=== PATIENT | male | born 1950 | race Caucasian/White ===

== ENCOUNTER 2020-12-20 17:27 | Inpatient (IN) | payer OTHER ==
[2020-12-20 17:48] VITALS: BMI 31.0
[2020-12-20] MEDS ORDERED: ASPIRIN 81 MG CHEWABLE TABLETS PO ONE (18:17)
[2020-12-20 19:04] LABS: HEMOGLOBIN 13.6 GM/dL (11.7-16.9); MCH 31.9 pg (25.7-33.7); MCHC 33.1 g/dl (32.0-35.9); MEAN CELL VOLUME 96.3 fl (80-96); MEAN PLT VOLUME 8.3 fl (7.5-11.1); PLATELET COUNT 175 10^3/uL (134-434); RBC 4.26 M/mm3 (4.00-5.60); WHITE BLOOD COUNT 14.3 K/mm3 (4.0-10.0)
[2020-12-20 19:13] LABS: INR 0.94 (0.83-1.09); PROTHROMBIN TIME (PATIENT) 11.6 SEC (9.7-13.0)
[2020-12-20 19:15] LABS: ACTIVATED PTT 27.2 SECONDS (25.2-36.5)
[2020-12-20 19:19] LABS: CHLORIDE 106 mmol/L (98-107); SODIUM 130 mmol/L (136-145)
[2020-12-20 19:21] LABS: BLOOD UREA NITROGEN 42.6 mg/dL (7-18); CALCIUM 7.6 mg/dL (8.5-10.1); CO2 27 mmol/L (21-32); GLUCOSE,RANDOM 118 mg/dL (74-106); LIPASE < 10 U/L (73-393); MAGNESIUM 2.3 mg/dL (1.8-2.4)
[2020-12-20 19:25] LABS: CREATININE 1.9 mg/dL (0.55-1.3)
[2020-12-20 19:26] LABS: BILIRUBIN,TOTAL 0.2 mg/dL (0.2-1); TOT PROT 6.8 g/dl (6.4-8.2)
[2020-12-20 19:27] LABS: ALK PHOS 64 U/L (45-117)
[2020-12-20 19:30] LABS: N-TERMINAL BNP 30.9 pg/ml (5-125)
[2020-12-20 20:36] LABS: ANION GAP -3 MMOL/L (8-16); SGOT/AST 63 U/L (15-37)
[2020-12-20 21:24] LABS: CHLORIDE 116 mmol/L (98-107); SODIUM 147 mmol/L (136-145)
[2020-12-20 21:26] LABS: ANION GAP 4 MMOL/L (8-16); BLOOD UREA NITROGEN 36.3 mg/dL (7-18); CO2 27 mmol/L (21-32); GLUCOSE,RANDOM 91 mg/dL (74-106)
[2020-12-20 21:29] LABS: CREATININE 1.6 mg/dL (0.55-1.3)
[2020-12-20 22:12] LABS: CALCIUM 6.7 mg/dL (8.5-10.1)
[2020-12-20 23:29] LABS: URINE APPEARANCE CLEAR; URINE BILIRUBIN NEGATIVE (NEGATIVE); URINE COLOR YELLOW; URINE GLUCOSE (UA) NEGATIVE (NEGATIVE); URINE KETONE NEGATIVE (NEGATIVE); URINE LEUK ESTERASE NEGATIVE (NEGATIVE); URINE NITRITE NEGATIVE (NEGATIVE); URINE PROTEIN NEGATIVE (NEGATIVE); URINE UROBILINOGEN 0.2 mg/dL (0.2-1.0)
[2020-12-21 08:04] LABS: HEMATOCRIT 39.7 % (35.4-49); HEMOGLOBIN 13.1 GM/dL (11.7-16.9); MCH 31.4 pg (25.7-33.7); MCHC 32.9 g/dl (32.0-35.9); MEAN CELL VOLUME 95.4 fl (80-96); MEAN PLT VOLUME 8.1 fl (7.5-11.1); PLATELET COUNT 167 10^3/uL (134-434); RBC 4.16 M/mm3 (4.00-5.60); RDW 17.1 % (11.9-15.9); WHITE BLOOD COUNT 13.3 K/mm3 (4.0-10.0)
[2020-12-21 08:10] LABS: CHLORIDE 107 mmol/L (98-107); SODIUM 144 mmol/L (136-145)
[2020-12-21 08:19] LABS: ALBUMIN 3.2 g/dl (3.4-5.0); ANION GAP 5 MMOL/L (8-16); BLOOD UREA NITROGEN 35.8 mg/dL (7-18); CO2 31 mmol/L (21-32); GLUCOSE,RANDOM 95 mg/dL (74-106); MAGNESIUM 2.1 mg/dL (1.8-2.4)
[2020-12-21 08:22] LABS: BILIRUBIN,TOTAL 0.3 mg/dL (0.2-1); CHOLESTEROL 149 mg/dL (50-200); CREATININE 1.6 mg/dL (0.55-1.3); HDL CHOLESTEROL 28 mg/dL (40-60); PHOSPHOROUS 3.2 mg/dL (2.5-4.9); SGOT/AST 10 U/L (15-37); SGPT/ALT 17 U/L (13-61); TRIGLYCERIDES 353 mg/dL (0-150)
[2020-12-21 08:23] LABS: ALK PHOS 67 U/L (45-117); LDL CHOLESTEROL (ONLY SJRH) 71 mg/dL (5-100); TOT PROT 6.1 g/dl (6.4-8.2)
[2020-12-21 08:29] LABS: CALCIUM 8.6 mg/dL (8.5-10.1)
[2020-12-21 08:55] LABS: ANISOCYTOSIS 0; HELMET CELLS 0; HOWELL-JOLLY BODIES 0; MACROCYTOSIS 0; OVALOCYTE 0; PLATELET ESTIMATE NORMAL; ROULEAU 0; SICKELED CELLS 0; TARGET CELLS 0; TEAR DROP CELLS 0; TOXIC GRANULATION 0
[2020-12-21] MEDS ORDERED: SODIUM CHLORIDE 1,000 ML IV SCH (09:00)
[2020-12-21] MEDS: ENOXAPARIN NA (PORCINE) 40 MG/0.4 ML DISP.SYRIN SQ SCH (09:39)
[2020-12-21] MEDS: ASPIRIN COATED 81 MG TABLET.EC PO SCH (09:43)
[2020-12-21] MEDS: SODIUM CHLORIDE 0.45% 1,000 ML IV SCH (15:48)
[2020-12-21] MEDS ORDERED: ACETAMINOPHEN 325 MG TABLET (FP) PO PRN (22:18)
[2020-12-22 09:15] LABS: HEMATOCRIT 39.2 % (35.4-49); HEMOGLOBIN 13.1 GM/dL (11.7-16.9); MCH 31.6 pg (25.7-33.7); MCHC 33.3 g/dl (32.0-35.9); MEAN CELL VOLUME 94.8 fl (80-96); MEAN PLT VOLUME 8.7 fl (7.5-11.1); PLATELET COUNT 179 10^3/uL (134-434); RBC 4.14 M/mm3 (4.00-5.60); WHITE BLOOD COUNT 13.7 K/mm3 (4.0-10.0)
[2020-12-22 10:00] LABS: ALBUMIN 3.1 g/dl (3.4-5.0); BLOOD UREA NITROGEN 24.4 mg/dL (7-18); CALCIUM 8.7 mg/dL (8.5-10.1)
[2020-12-22 10:03] LABS: BILIRUBIN,TOTAL 0.3 mg/dL (0.2-1); CREATININE 1.3 mg/dL (0.55-1.3)
[2020-12-22 10:04] LABS: TOT PROT 5.8 g/dl (6.4-8.2)
[2020-12-22] MEDS: ENOXAPARIN NA (PORCINE) 40 MG/0.4 ML DISP.SYRIN SQ SCH (10:30)
[2020-12-22] MEDS: ASPIRIN COATED 81 MG TABLET.EC PO SCH (10:30)
[2020-12-22] MEDS: SODIUM CHLORIDE 0.45% 1,000 ML IV SCH (18:42)
[2020-12-23] MEDS: SODIUM CHLORIDE 0.45% 1,000 ML IV SCH ×2 (05:20→21:30)
[2020-12-23 08:17] LABS: HEMATOCRIT 40.3 % (35.4-49); HEMOGLOBIN 13.4 GM/dL (11.7-16.9); MCH 31.4 pg (25.7-33.7); MCHC 33.3 g/dl (32.0-35.9); MEAN CELL VOLUME 94.5 fl (80-96); MEAN PLT VOLUME 8.8 fl (7.5-11.1); PLATELET COUNT 190 10^3/uL (134-434); RBC 4.27 M/mm3 (4.00-5.60); RDW 16.5 % (11.9-15.9); WHITE BLOOD COUNT 16.2 K/mm3 (4.0-10.0)
[2020-12-23 08:20] LABS: CHLORIDE 105 mmol/L (98-107); SODIUM 138 mmol/L (136-145)
[2020-12-23 08:27] LABS: ALBUMIN 3.3 g/dl (3.4-5.0); ANION GAP 5 MMOL/L (8-16); BLOOD UREA NITROGEN 21.5 mg/dL (7-18); CALCIUM 8.5 mg/dL (8.5-10.1); CO2 29 mmol/L (21-32); GLUCOSE,RANDOM 97 mg/dL (74-106)
[2020-12-23 08:28] LABS: SGPT/ALT 26 U/L (13-61)
[2020-12-23 08:29] LABS: CREATININE 1.2 mg/dL (0.55-1.3)
[2020-12-23 08:31] LABS: ALK PHOS 79 U/L (45-117); BILIRUBIN,TOTAL 0.4 mg/dL (0.2-1); SGOT/AST < 3 U/L (15-37); TOT PROT 7.2 g/dl (6.4-8.2)
[2020-12-23] MEDS: ASPIRIN COATED 81 MG TABLET.EC PO SCH (09:02)
[2020-12-23] MEDS: ENOXAPARIN NA (PORCINE) 40 MG/0.4 ML DISP.SYRIN SQ SCH (09:02)
[2020-12-23 09:43] LABS: ANISOCYTOSIS 0; HELMET CELLS 0; HOWELL-JOLLY BODIES 0; MACROCYTOSIS 0; OVALOCYTE 0; PLATELET ESTIMATE NORMAL; ROULEAU 0; SICKELED CELLS 0; TARGET CELLS 0; TEAR DROP CELLS 0; TOXIC GRANULATION 0
[2020-12-23] MEDS ORDERED: PT OWN MED DRAWER 7, Y5N ONE (20:46)
[2020-12-23] MEDS: LORazepam 1 MG TABLET PO SCH (21:04)
[2020-12-23] MEDS: DIVALPROEX NA *ER* EXTEND REL 250 MG TABLET.SA PO SCH (21:04)
[2020-12-23] MEDS: BENZTROPINE MESYLATE 0.5 MG TABLET (FP) PO SCH (21:04)
[2020-12-23] MEDS: DOCUSATE SODIUM 100 MG CAPSULE (FP) PO SCH (21:05)
[2020-12-24 07:49] LABS: BASO % 0.3 % (0-2.0); EOS % 0.8 % (0-4.5); HEMATOCRIT 39.8 % (35.4-49); HEMOGLOBIN 13.4 GM/dL (11.7-16.9); LYMPH % 72.6 % (8-40); MCH 31.6 pg (25.7-33.7); MCHC 33.6 g/dl (32.0-35.9); MEAN CELL VOLUME 94.2 fl (80-96); MEAN PLT VOLUME 8.5 fl (7.5-11.1); MONO % 4.9 % (3.8-10.2); NEUT % 21.4 % (42.8-82.8); PLATELET COUNT 195 10^3/uL (134-434); RBC 4.23 M/mm3 (4.00-5.60); RDW 16.6 % (11.9-15.9); WHITE BLOOD COUNT 17.8 K/mm3 (4.0-10.0)
[2020-12-24 08:22] LABS: BLOOD UREA NITROGEN 22.9 mg/dL (7-18); CALCIUM 9.2 mg/dL (8.5-10.1)
[2020-12-24 08:25] LABS: CREATININE 1.3 mg/dL (0.55-1.3)
[2020-12-24] MEDS ORDERED: PT OWN MED DRAWER 7, Y5N ONE ×2 (09:54→20:58)
[2020-12-24] MEDS: ALLOPURINOL 300 MG TABLET (FP) PO SCH (09:59)
[2020-12-24] MEDS: BENZTROPINE MESYLATE 0.5 MG TABLET (FP) PO SCH ×2 (09:59→21:03)
[2020-12-24] MEDS: ARIPiprazole 15 MG TABLET PO SCH (09:59)
[2020-12-24] MEDS: DIVALPROEX NA *ER* EXTEND REL 250 MG TABLET.SA PO SCH ×2 (09:59→21:03)
[2020-12-24] MEDS: FUROSEMIDE 20 MG TABLET (FP) PO SCH (09:59)
[2020-12-24] MEDS ORDERED: ATORVASTATIN CA 80 MG TABLET (FP) PO SCH (10:00)
[2020-12-24] MEDS: DOCUSATE SODIUM 100 MG CAPSULE (FP) PO SCH ×2 (10:00→21:03)
[2020-12-24] MEDS: LORazepam 1 MG TABLET PO SCH ×2 (10:01→21:03)
[2020-12-24] MEDS: LOSARTAN POTASSIUM 50 MG TABLET PO SCH (10:01)
[2020-12-24] MEDS: ASPIRIN COATED 81 MG TABLET.EC PO SCH (10:01)
[2020-12-24] MEDS: ESCITALOPRAM OXALATE 10 MG TABLET PO SCH (10:01)
[2020-12-24] MEDS: ENOXAPARIN NA (PORCINE) 40 MG/0.4 ML DISP.SYRIN SQ SCH (10:02)
[2020-12-24] MEDS ORDERED: CEFTRIAXONE 1 GM in DEXTROSE 5%-WATER - 50 ML IVPB SCH (10:45)
[2020-12-24 10:51] LABS: MACROCYTOSIS 0; PLATELET ESTIMATE NORMAL
[2020-12-24 10:52] LABS: ANISOCYTOSIS 1+
[2020-12-24] MEDS ORDERED: DEXTROSE 5%-WATER - 50 ML IVPB ONE (11:06)
[2020-12-24] MEDS ORDERED: cefTRIAXone SODIUM 1 GM VIAL ONE (11:06)
[2020-12-24] MEDS: CEFTRIAXONE 1 GM in DEXTROSE 5%-WATER - 50 ML IVPB SCH (11:08)
[2020-12-24] MEDS ORDERED: ACETAMINOPHEN 1000 MG/100 ML VIAL (NON FORMULARY) IVPB ONE (11:30)
[2020-12-24] MEDS: ATORVASTATIN CA 80 MG TABLET (FP) PO SCH (21:03)
[2020-12-24] MEDS: SODIUM CHLORIDE 0.45% 1,000 ML IV SCH (23:38)
[2020-12-25 08:35] LABS: HEMATOCRIT 40.8 % (35.4-49); HEMOGLOBIN 13.4 GM/dL (11.7-16.9); MCH 31.4 pg (25.7-33.7); MCHC 32.9 g/dl (32.0-35.9); MEAN CELL VOLUME 95.6 fl (80-96); MEAN PLT VOLUME 8.2 fl (7.5-11.1); PLATELET COUNT 197 10^3/uL (134-434); RBC 4.26 M/mm3 (4.00-5.60); RDW 17.4 % (11.9-15.9); WHITE BLOOD COUNT 16.5 K/mm3 (4.0-10.0)
[2020-12-25 09:05] LABS: BLOOD UREA NITROGEN 26.8 mg/dL (7-18)
[2020-12-25 09:08] LABS: CREATININE 1.4 mg/dL (0.55-1.3)
[2020-12-25 09:38] LABS: ANISOCYTOSIS 0; MACROCYTOSIS 0; PLATELET ESTIMATE NORMAL
[2020-12-25] MEDS ORDERED: cefTRIAXone SODIUM 1 GM VIAL ONE (10:00)
[2020-12-25] MEDS ORDERED: DEXTROSE 5%-WATER - 50 ML IVPB ONE (10:00)
[2020-12-25] MEDS ORDERED: PT OWN MED DRAWER 7, Y5N ONE (10:00)
[2020-12-25] MEDS: DOCUSATE SODIUM 100 MG CAPSULE (FP) PO SCH ×2 (10:04→21:18)
[2020-12-25] MEDS: ALLOPURINOL 300 MG TABLET (FP) PO SCH (10:04)
[2020-12-25] MEDS: LOSARTAN POTASSIUM 50 MG TABLET PO SCH (10:04)
[2020-12-25] MEDS: FUROSEMIDE 20 MG TABLET (FP) PO SCH (10:04)
[2020-12-25] MEDS: ASPIRIN COATED 81 MG TABLET.EC PO SCH (10:04)
[2020-12-25] MEDS: ENOXAPARIN NA (PORCINE) 40 MG/0.4 ML DISP.SYRIN SQ SCH (10:04)
[2020-12-25] MEDS: ESCITALOPRAM OXALATE 10 MG TABLET PO SCH (10:04)
[2020-12-25] MEDS: LORazepam 1 MG TABLET PO SCH ×2 (10:05→21:18)
[2020-12-25] MEDS: ARIPiprazole 15 MG TABLET PO SCH (10:06)
[2020-12-25] MEDS: BENZTROPINE MESYLATE 0.5 MG TABLET (FP) PO SCH ×2 (10:06→21:18)
[2020-12-25] MEDS: CEFTRIAXONE 1 GM in DEXTROSE 5%-WATER - 50 ML IVPB SCH (10:07)
[2020-12-25] MEDS: DIVALPROEX SODIUM 250 MG TABLET E.C. PO SCH ×2 (12:00→21:18)
[2020-12-25 15:08] LABS: TOTAL PROTEIN, URINE 18.5 mg/dL (Not Estab.)
[2020-12-25] MEDS: SODIUM CHLORIDE 0.45% 1,000 ML IV SCH ×2 (16:48→22:04)
[2020-12-25] MEDS: ATORVASTATIN CA 80 MG TABLET (FP) PO SCH (21:18)
[2020-12-26 07:35] LABS: HEMATOCRIT 40.3 % (35.4-49); HEMOGLOBIN 13.5 GM/dL (11.7-16.9); MCH 31.6 pg (25.7-33.7); MCHC 33.5 g/dl (32.0-35.9); MEAN CELL VOLUME 94.5 fl (80-96); MEAN PLT VOLUME 7.9 fl (7.5-11.1); PLATELET COUNT 201 10^3/uL (134-434); RBC 4.27 M/mm3 (4.00-5.60); WHITE BLOOD COUNT 18.7 K/mm3 (4.0-10.0)
[2020-12-26 07:57] LABS: CALCIUM 8.9 mg/dL (8.5-10.1)
[2020-12-26 07:58] LABS: BLOOD UREA NITROGEN 30.8 mg/dL (7-18)
[2020-12-26 08:01] LABS: CREATININE 1.5 mg/dL (0.55-1.3)
[2020-12-26] MEDS ORDERED: cefTRIAXone SODIUM 1 GM VIAL ONE (09:34)
[2020-12-26] MEDS: ASPIRIN COATED 81 MG TABLET.EC PO SCH (10:38)
[2020-12-26] MEDS: ESCITALOPRAM OXALATE 10 MG TABLET PO SCH (10:38)
[2020-12-26] MEDS: ALLOPURINOL 300 MG TABLET (FP) PO SCH (10:38)
[2020-12-26] MEDS: FUROSEMIDE 20 MG TABLET (FP) PO SCH (10:38)
[2020-12-26] MEDS: CEFTRIAXONE 1 GM in DEXTROSE 5%-WATER - 50 ML IVPB SCH (10:38)
[2020-12-26] MEDS: ENOXAPARIN NA (PORCINE) 40 MG/0.4 ML DISP.SYRIN SQ SCH (10:38)
[2020-12-26] MEDS: LOSARTAN POTASSIUM 50 MG TABLET PO SCH (10:38)
[2020-12-26] MEDS: DOCUSATE SODIUM 100 MG CAPSULE (FP) PO SCH ×2 (10:38→21:18)
[2020-12-26] MEDS: BENZTROPINE MESYLATE 0.5 MG TABLET (FP) PO SCH ×2 (10:39→21:20)
[2020-12-26] MEDS: DIVALPROEX SODIUM 250 MG TABLET E.C. PO SCH ×2 (10:39→21:20)
[2020-12-26] MEDS: LORazepam 1 MG TABLET PO SCH ×2 (10:43→21:17)
[2020-12-26] MEDS: ARIPiprazole 15 MG TABLET PO SCH (10:43)
[2020-12-26] MEDS ORDERED: PT OWN MED DRAWER 7, Y5N ONE (21:04)
[2020-12-26] MEDS: ATORVASTATIN CA 80 MG TABLET (FP) PO SCH (21:16)
[2020-12-27 07:31] LABS: HEMOGLOBIN 13.2 GM/dL (11.7-16.9); MCH 31.6 pg (25.7-33.7); MEAN CELL VOLUME 95.7 fl (80-96); MEAN PLT VOLUME 8.7 fl (7.5-11.1); PLATELET COUNT 204 10^3/uL (134-434); RBC 4.18 M/mm3 (4.00-5.60); WHITE BLOOD COUNT 21.4 K/mm3 (4.0-10.0)
[2020-12-27 07:47] LABS: BLOOD UREA NITROGEN 37.6 mg/dL (7-18); CALCIUM 8.5 mg/dL (8.5-10.1); MAGNESIUM 2.1 mg/dL (1.8-2.4)
[2020-12-27 07:51] LABS: CREATININE 1.7 mg/dL (0.55-1.3); PHOSPHOROUS 3.9 mg/dL (2.5-4.9)
[2020-12-27] MEDS ORDERED: DEXTROSE 5%-WATER - 50 ML IVPB ONE (09:06)
[2020-12-27] MEDS ORDERED: PIPERACILLIN/TAZOBACTAM 3.375 GM VIAL IVPB ONE (09:06)
[2020-12-27] MEDS: DOCUSATE SODIUM 100 MG CAPSULE (FP) PO SCH ×2 (09:19→22:22)
[2020-12-27] MEDS: ARIPiprazole 15 MG TABLET PO SCH (09:19)
[2020-12-27] MEDS: BENZTROPINE MESYLATE 0.5 MG TABLET (FP) PO SCH ×2 (09:19→22:22)
[2020-12-27] MEDS: ENOXAPARIN NA (PORCINE) 40 MG/0.4 ML DISP.SYRIN SQ SCH (09:20)
[2020-12-27] MEDS: ASPIRIN COATED 81 MG TABLET.EC PO SCH (09:20)
[2020-12-27] MEDS: ESCITALOPRAM OXALATE 10 MG TABLET PO SCH (09:21)
[2020-12-27] MEDS: LORazepam 1 MG TABLET PO SCH ×2 (09:21→22:23)
[2020-12-27] MEDS: DIVALPROEX SODIUM 250 MG TABLET E.C. PO SCH ×2 (09:22→22:24)
[2020-12-27] MEDS: ALLOPURINOL 300 MG TABLET (FP) PO SCH (09:24)
[2020-12-27] MEDS ORDERED: PIPERACILLIN/TAZOB 3.375 GM 3.375 GM in DEXTROSE 5%-WATER - 50 ML IVPB SCH (10:00)
[2020-12-27] MEDS: SODIUM CHLORIDE 0.45% 1,000 ML IV SCH (12:26)
[2020-12-27 13:05] LABS: ANISOCYTOSIS 1+; MACROCYTOSIS 0; OVALOCYTE 1+; PLATELET ESTIMATE NORMAL; TEAR DROP CELLS 1+
[2020-12-27] MEDS: HEPARIN NA (PORCINE) 5,000 UNITS/ML 1ML VIAL SQ SCH ×2 (13:46→22:25)
[2020-12-27 13:52] LABS: PH,URINE 5.5 (5.0-8.0); URINE APPEARANCE CLEAR; URINE BILIRUBIN NEGATIVE (NEGATIVE); URINE COLOR YELLOW; URINE GLUCOSE (UA) NEGATIVE (NEGATIVE); URINE KETONE TRACE (NEGATIVE); URINE LEUK ESTERASE NEGATIVE (NEGATIVE); URINE NITRITE NEGATIVE (NEGATIVE); URINE PROTEIN NEGATIVE (NEGATIVE); URINE UROBILINOGEN 0.2 mg/dL (0.2-1.0)
[2020-12-27] MEDS ORDERED: PT OWN MED DRAWER 7, Y5N ONE (20:19)
[2020-12-27] MEDS: ATORVASTATIN CA 80 MG TABLET (FP) PO SCH (22:25)
[2020-12-28] MEDS: HEPARIN NA (PORCINE) 5,000 UNITS/ML 1ML VIAL SQ SCH ×3 (05:48→21:46)
[2020-12-28] MEDS: ALLOPURINOL 300 MG TABLET (FP) PO SCH (09:37)
[2020-12-28] MEDS: DOCUSATE SODIUM 100 MG CAPSULE (FP) PO SCH ×2 (09:37→21:45)
[2020-12-28] MEDS: LORazepam 1 MG TABLET PO SCH ×2 (09:37→22:00)
[2020-12-28] MEDS: ESCITALOPRAM OXALATE 10 MG TABLET PO SCH (09:37)
[2020-12-28] MEDS: BENZTROPINE MESYLATE 0.5 MG TABLET (FP) PO SCH ×2 (09:38→21:45)
[2020-12-28] MEDS: DIVALPROEX SODIUM 250 MG TABLET E.C. PO SCH ×2 (09:38→21:45)
[2020-12-28] MEDS: ARIPiprazole 15 MG TABLET PO SCH (09:39)
[2020-12-28] MEDS: SODIUM CHLORIDE 0.45% 1,000 ML IV SCH (13:24)
[2020-12-28] MEDS: ATORVASTATIN CA 80 MG TABLET (FP) PO SCH (22:00)
[2020-12-29] MEDS: HEPARIN NA (PORCINE) 5,000 UNITS/ML 1ML VIAL SQ SCH ×3 (05:21→21:27)
[2020-12-29] MEDS: SODIUM CHLORIDE 0.45% 1,000 ML IV SCH (08:06)
[2020-12-29 08:15] LABS: HEMATOCRIT 39.6 % (35.4-49); MCH 31.6 pg (25.7-33.7); MCHC 32.8 g/dl (32.0-35.9); MEAN CELL VOLUME 96.4 fl (80-96); MEAN PLT VOLUME 8.5 fl (7.5-11.1); PLATELET COUNT 224 10^3/uL (134-434); RBC 4.11 M/mm3 (4.00-5.60); RDW 17.2 % (11.9-15.9); WHITE BLOOD COUNT 17.5 K/mm3 (4.0-10.0)
[2020-12-29 08:32] LABS: ALBUMIN 3.3 g/dl (3.4-5.0); CALCIUM 9.1 mg/dL (8.5-10.1)
[2020-12-29 08:35] LABS: CREATININE 1.5 mg/dL (0.55-1.3)
[2020-12-29 08:37] LABS: BILIRUBIN,TOTAL 0.4 mg/dL (0.2-1); TOT PROT 6.4 g/dl (6.4-8.2)
[2020-12-29] MEDS ORDERED: PT OWN MED DRAWER 7, Y5N ONE ×2 (09:41→20:20)
[2020-12-29] MEDS: ARIPiprazole 15 MG TABLET PO SCH (10:01)
[2020-12-29] MEDS: DIVALPROEX SODIUM 250 MG TABLET E.C. PO SCH ×2 (10:01→21:27)
[2020-12-29] MEDS: ESCITALOPRAM OXALATE 10 MG TABLET PO SCH (10:01)
[2020-12-29] MEDS: DOCUSATE SODIUM 100 MG CAPSULE (FP) PO SCH ×2 (10:01→21:26)
[2020-12-29] MEDS: LORazepam 1 MG TABLET PO SCH ×2 (10:01→21:26)
[2020-12-29] MEDS: ALLOPURINOL 300 MG TABLET (FP) PO SCH (10:02)
[2020-12-29] MEDS: BENZTROPINE MESYLATE 0.5 MG TABLET (FP) PO SCH ×2 (10:02→21:26)
[2020-12-29 10:32] LABS: ANISOCYTOSIS 0; HELMET CELLS 0; HOWELL-JOLLY BODIES 0; MACROCYTOSIS 0; OVALOCYTE 0; PLATELET ESTIMATE NORMAL; ROULEAU 0; SICKELED CELLS 0; TARGET CELLS 0; TEAR DROP CELLS 0; TOXIC GRANULATION 0
[2020-12-29] MEDS: ATORVASTATIN CA 80 MG TABLET (FP) PO SCH (21:27)
[2020-12-30] MEDS: HEPARIN NA (PORCINE) 5,000 UNITS/ML 1ML VIAL SQ SCH ×3 (06:00→21:28)
[2020-12-30 08:48] LABS: HEMATOCRIT 44.3 % (35.4-49); HEMOGLOBIN 14.5 GM/dL (11.7-16.9); MCH 31.8 pg (25.7-33.7); MCHC 32.8 g/dl (32.0-35.9); MEAN CELL VOLUME 96.8 fl (80-96); MEAN PLT VOLUME 8.7 fl (7.5-11.1); PLATELET COUNT 261 10^3/uL (134-434); RBC 4.57 M/mm3 (4.00-5.60); RDW 17.6 % (11.9-15.9); WHITE BLOOD COUNT 20.8 K/mm3 (4.0-10.0)
[2020-12-30 09:15] LABS: ALBUMIN 3.6 g/dl (3.4-5.0); CALCIUM 9.3 mg/dL (8.5-10.1)
[2020-12-30 09:16] LABS: BLOOD UREA NITROGEN 27.4 mg/dL (7-18)
[2020-12-30 09:17] LABS: BILIRUBIN,TOTAL 0.2 mg/dL (0.2-1)
[2020-12-30 09:19] LABS: CREATININE 1.5 mg/dL (0.55-1.3)
[2020-12-30] MEDS ORDERED: PT OWN MED DRAWER 7, Y5N ONE ×2 (10:52→20:07)
[2020-12-30] MEDS: FUROSEMIDE 20 MG TABLET (FP) PO SCH (11:09)
[2020-12-30] MEDS: DOCUSATE SODIUM 100 MG CAPSULE (FP) PO SCH ×2 (11:09→21:29)
[2020-12-30] MEDS: ESCITALOPRAM OXALATE 10 MG TABLET PO SCH (11:09)
[2020-12-30] MEDS: ALLOPURINOL 300 MG TABLET (FP) PO SCH (11:10)
[2020-12-30] MEDS: BENZTROPINE MESYLATE 0.5 MG TABLET (FP) PO SCH ×2 (11:11→21:28)
[2020-12-30] MEDS: DIVALPROEX SODIUM 250 MG TABLET E.C. PO SCH ×2 (11:12→21:29)
[2020-12-30] MEDS: ARIPiprazole 15 MG TABLET PO SCH (11:14)
[2020-12-30] MEDS: LORazepam 1 MG TABLET PO SCH (11:14)
[2020-12-30 13:04] LABS: ANISOCYTOSIS 1+; MACROCYTOSIS 0; OVALOCYTE 1+; PLATELET ESTIMATE NORMAL
[2020-12-30] MEDS: SODIUM CHLORIDE 0.45% 1,000 ML IV SCH (15:55)
[2020-12-30] MEDS: ATORVASTATIN CA 80 MG TABLET (FP) PO SCH (21:29)
[2020-12-30] MEDS ORDERED: LORazepam 1 MG TABLET PO ONE (21:51)
[2020-12-31] MEDS: HEPARIN NA (PORCINE) 5,000 UNITS/ML 1ML VIAL SQ SCH ×3 (06:32→23:18)
[2020-12-31 09:05] LABS: HEMATOCRIT 40.5 % (35.4-49); HEMOGLOBIN 13.3 GM/dL (11.7-16.9); MCH 31.7 pg (25.7-33.7); MCHC 32.9 g/dl (32.0-35.9); MEAN CELL VOLUME 96.2 fl (80-96); MEAN PLT VOLUME 8.4 fl (7.5-11.1); PLATELET COUNT 241 10^3/uL (134-434); RBC 4.21 M/mm3 (4.00-5.60); RDW 17.6 % (11.9-15.9); WHITE BLOOD COUNT 21.7 K/mm3 (4.0-10.0)
[2020-12-31 09:25] LABS: ALBUMIN 3.3 g/dl (3.4-5.0); BLOOD UREA NITROGEN 29.3 mg/dL (7-18)
[2020-12-31] MEDS ORDERED: PT OWN MED DRAWER 7, Y5N ONE ×3 (09:26→21:44)
[2020-12-31 09:28] LABS: CREATININE 1.5 mg/dL (0.55-1.3)
[2020-12-31 09:30] LABS: BILIRUBIN,TOTAL 0.3 mg/dL (0.2-1); TOT PROT 6.3 g/dl (6.4-8.2)
[2020-12-31] MEDS: ALLOPURINOL 300 MG TABLET (FP) PO SCH (09:54)
[2020-12-31] MEDS: ESCITALOPRAM OXALATE 10 MG TABLET PO SCH (09:54)
[2020-12-31] MEDS: FUROSEMIDE 20 MG TABLET (FP) PO SCH (09:54)
[2020-12-31] MEDS: DOCUSATE SODIUM 100 MG CAPSULE (FP) PO SCH ×2 (09:54→23:19)
[2020-12-31] MEDS: ARIPiprazole 15 MG TABLET PO SCH (09:54)
[2020-12-31] MEDS: DIVALPROEX SODIUM 250 MG TABLET E.C. PO SCH ×2 (09:55→23:19)
[2020-12-31] MEDS: BENZTROPINE MESYLATE 0.5 MG TABLET (FP) PO SCH ×2 (09:55→23:19)
[2020-12-31 10:48] LABS: ANISOCYTOSIS 0; MACROCYTOSIS 0; PLATELET ESTIMATE NORMAL
[2020-12-31] MEDS: ATORVASTATIN CA 80 MG TABLET (FP) PO SCH (23:18)
[2021-01-01 07:38] LABS: HEMOGLOBIN 13.9 GM/dL (11.7-16.9); MCH 31.5 pg (25.7-33.7); MCHC 33.1 g/dl (32.0-35.9); MEAN CELL VOLUME 95.1 fl (80-96); MEAN PLT VOLUME 8.5 fl (7.5-11.1); PLATELET COUNT 238 10^3/uL (134-434); RBC 4.41 M/mm3 (4.00-5.60); RDW 17.3 % (11.9-15.9); WHITE BLOOD COUNT 18.8 K/mm3 (4.0-10.0)
[2021-01-01 07:50] LABS: ALBUMIN 3.4 g/dl (3.4-5.0); BLOOD UREA NITROGEN 27.7 mg/dL (7-18); CALCIUM 9.3 mg/dL (8.5-10.1)
[2021-01-01 07:54] LABS: CREATININE 1.5 mg/dL (0.55-1.3)
[2021-01-01 07:55] LABS: BILIRUBIN,TOTAL 0.4 mg/dL (0.2-1); TOT PROT 6.5 g/dl (6.4-8.2)
[2021-01-01 08:07] LABS: IGA IMMUNOGLOBULIN 106 mg/dL (61-437); IGG QN IMMUNOGLOBULIN 867 mg/dL (603-1613); IGM QN SERUM 38 mg/dL (15-143)
[2021-01-01] MEDS ORDERED: PT OWN MED DRAWER 7, Y5N ONE ×2 (08:54→20:17)
[2021-01-01] MEDS: ALLOPURINOL 300 MG TABLET (FP) PO SCH (11:03)
[2021-01-01] MEDS: DOCUSATE SODIUM 100 MG CAPSULE (FP) PO SCH ×2 (11:03→21:21)
[2021-01-01] MEDS: ESCITALOPRAM OXALATE 10 MG TABLET PO SCH (11:03)
[2021-01-01] MEDS: ARIPiprazole 15 MG TABLET PO SCH (11:03)
[2021-01-01] MEDS: BENZTROPINE MESYLATE 0.5 MG TABLET (FP) PO SCH ×2 (11:03→21:21)
[2021-01-01] MEDS: DIVALPROEX SODIUM 250 MG TABLET E.C. PO SCH ×2 (11:04→21:21)
[2021-01-01 18:11] LABS: FREE KAPPA,SERUM 48.7 mg/L (3.3-19.4)
[2021-01-01] MEDS: ATORVASTATIN CA 80 MG TABLET (FP) PO SCH (21:21)
[2021-01-01] MEDS ORDERED: LORazepam 1 MG TABLET PO ONE (21:28)
[2021-01-02] MEDS: HEPARIN NA (PORCINE) 5,000 UNITS/ML 1ML VIAL SQ SCH ×3 (05:10→21:34)
[2021-01-02] MEDS ORDERED: PT OWN MED DRAWER 7, Y5N ONE ×2 (10:26→20:47)
[2021-01-02] MEDS: BENZTROPINE MESYLATE 0.5 MG TABLET (FP) PO SCH ×2 (11:08→22:02)
[2021-01-02] MEDS: DIVALPROEX SODIUM 250 MG TABLET E.C. PO SCH ×2 (11:08→21:34)
[2021-01-02] MEDS: ESCITALOPRAM OXALATE 10 MG TABLET PO SCH (11:08)
[2021-01-02] MEDS: ALLOPURINOL 300 MG TABLET (FP) PO SCH (11:15)
[2021-01-02] MEDS: ARIPiprazole 15 MG TABLET PO SCH (11:17)
[2021-01-02] MEDS: DOCUSATE SODIUM 100 MG CAPSULE (FP) PO SCH ×2 (11:17→21:34)
[2021-01-02] MEDS: ATORVASTATIN CA 80 MG TABLET (FP) PO SCH (21:34)
[2021-01-03] MEDS: HEPARIN NA (PORCINE) 5,000 UNITS/ML 1ML VIAL SQ SCH (06:51)
[2021-01-03] MEDS ORDERED: PT OWN MED DRAWER 7, Y5N ONE ×2 (08:54→10:16)
[2021-01-03] MEDS: DIVALPROEX SODIUM 250 MG TABLET E.C. PO SCH (10:13)
[2021-01-03] MEDS: ARIPiprazole 15 MG TABLET PO SCH (10:13)
[2021-01-03] MEDS: ESCITALOPRAM OXALATE 10 MG TABLET PO SCH (10:14)
[2021-01-03] MEDS: DOCUSATE SODIUM 100 MG CAPSULE (FP) PO SCH (10:14)
[2021-01-03] MEDS: ALLOPURINOL 300 MG TABLET (FP) PO SCH (10:14)
[2021-01-03] MEDS: BENZTROPINE MESYLATE 0.5 MG TABLET (FP) PO SCH (10:15)
[2021-01-03 14:09] VITALS: BP 109/78; PULSE 82; TEMP 98.2
== END 2021-01-03 13:35 | DRG 194 ==
LOC: JER 17:27 → JERBED 20:19 → OBSVTOIN 12-21 00:27 → J4W 12-21 03:40
PROVIDERS: ADMIT Internal Medicine
DX: J18.9 Pneumonia, unspecified organism (principal); N17.9 Acute kidney failure, unspecified; I13.0 Hypertensive heart and chronic kidney disease with heart failure and stage 1 through stage 4 chronic kidney disease, or unspecified chronic kidney disease; I50.32 Chronic diastolic (congestive) heart failure; C91.10 Chronic lymphocytic leukemia of B-cell type not having achieved remission; I25.10 Atherosclerotic heart disease of native coronary artery without angina pectoris; I48.91 Unspecified atrial fibrillation; I45.10 Unspecified right bundle-branch block; F31.9 Bipolar disorder, unspecified; F20.9 Schizophrenia, unspecified; E66.9 Obesity, unspecified; N18.9 Chronic kidney disease, unspecified; E83.51 Hypocalcemia; R59.0 Localized enlarged lymph nodes; R07.2 Precordial pain; R32 Unspecified urinary incontinence; Z68.31 Body mass index [BMI] 31.0-31.9, adult
CPT/HCPCS: 36415; 71045-TC-FY; 71046-TC-FY; 71250-TC; 76775-TC; 76882-TC-RT-FY; 80048; 80053; 80061; 81003; 82436; 82550; 82553; 82570; 82784; 83036; 83615; 83690; 83735; 83880; 83883; 84100; 84133; 84155; 84156; 84165; 84166; 84300; 84436; 84443; 84484; 85025; 85027; 85610; 85730; 87040; 87086; 93005; 93010; 93306-TC; 94010; 97116-GP; 97162-GP; 99285-25; C9803; G0378; J0131; J1644; U0003; U0005

== ENCOUNTER 2021-04-23 07:47 | Inpatient (IN) | payer OTHER ==
[2021-04-23 09:32] LABS: HEMOGLOBIN 11.8 GM/dL (11.7-16.9); MCH 31.2 pg (25.7-33.7); MCHC 32.6 g/dl (32.0-35.9); MEAN CELL VOLUME 95.7 fl (80-96); MEAN PLT VOLUME 7.9 fl (7.5-11.1); PLATELET COUNT 225 10^3/uL (134-434); RBC 3.76 M/mm3 (4.00-5.60); RDW 16.6 % (11.9-15.9); WHITE BLOOD COUNT 29.4 K/mm3 (4.0-10.0)
[2021-04-23 09:51] LABS: CHLORIDE 109 mmol/L (98-107); SODIUM 142 mmol/L (136-145)
[2021-04-23 09:53] LABS: CALCIUM 8.9 mg/dL (8.5-10.1)
[2021-04-23 09:54] LABS: ALBUMIN 3.3 g/dl (3.4-5.0); ANION GAP 5 MMOL/L (8-16); BLOOD UREA NITROGEN 35.2 mg/dL (7-18); CO2 28 mmol/L (21-32); GLUCOSE,RANDOM 121 mg/dL (74-106); MAGNESIUM 2.4 mg/dL (1.8-2.4)
[2021-04-23 09:57] LABS: CREATININE 1.8 mg/dL (0.55-1.3); SGOT/AST 20 U/L (15-37); SGPT/ALT 25 U/L (13-61); TOT PROT 6.3 g/dl (6.4-8.2)
[2021-04-23 09:59] LABS: ALK PHOS 68 U/L (45-117); BILIRUBIN,TOTAL 0.1 mg/dL (0.2-1)
[2021-04-23 10:02] LABS: N-TERMINAL BNP 108.7 pg/ml (5-125)
[2021-04-23 10:03] LABS: ANISOCYTOSIS 0; HELMET CELLS 0; HOWELL-JOLLY BODIES 0; MACROCYTOSIS 0; OVALOCYTE 0; PLATELET ESTIMATE NORMAL; ROULEAU 0; SICKELED CELLS 0; TARGET CELLS 0; TEAR DROP CELLS 0; TOXIC GRANULATION 0
[2021-04-23] MEDS ORDERED: ALBUTEROL SO4 2.5/IPRATROPIUM 0.5 INH SOL 3 ML VIAL.NEB. NEB PRN (17:50)
[2021-04-23 19:13] LABS: ARTERIAL BLD GAS O2 SATURATION 94.8 % (95-98); ARTERIAL BLOOD GAS BASE EXCESS -1.6 mmol/L (-2-2); ARTERIAL BLOOD GAS PO2 78.7 mmHg (80-100); ARTERIAL BLOOD GAS pH 7.336 (7.350-7.450)
[2021-04-23] MEDS ORDERED: PT OWN MED DRAWER 7, Y5N ONE (21:45)
[2021-04-23] MEDS: DIVALPROEX NA *ER* EXTEND REL 250 MG TABLET.SA PO SCH (21:58)
[2021-04-23] MEDS: HEPARIN NA (PORCINE) 5,000 UNITS/ML 1ML VIAL SQ SCH (21:59)
[2021-04-23] MEDS: DOCUSATE SODIUM 100 MG CAPSULE (FP) PO SCH (21:59)
[2021-04-24 01:55] VITALS: BMI 29.5
[2021-04-24] MEDS: HEPARIN NA (PORCINE) 5,000 UNITS/ML 1ML VIAL SQ SCH ×3 (06:10→21:53)
[2021-04-24 07:41] LABS: HEMATOCRIT 40.1 % (35.4-49); HEMOGLOBIN 12.7 GM/dL (11.7-16.9); MCH 30.8 pg (25.7-33.7); MCHC 31.8 g/dl (32.0-35.9); MEAN CELL VOLUME 96.9 fl (80-96); MEAN PLT VOLUME 8.1 fl (7.5-11.1); PLATELET COUNT 258 10^3/uL (134-434); RBC 4.13 M/mm3 (4.00-5.60); RDW 16.8 % (11.9-15.9)
[2021-04-24 07:48] LABS: WHITE BLOOD COUNT 36.1 K/mm3 (4.0-10.0)
[2021-04-24 08:01] LABS: CALCIUM 9.7 mg/dL (8.5-10.1)
[2021-04-24 08:02] LABS: BLOOD UREA NITROGEN 30.8 mg/dL (7-18); MAGNESIUM 2.4 mg/dL (1.8-2.4)
[2021-04-24 08:05] LABS: CREATININE 1.5 mg/dL (0.55-1.3); PHOSPHOROUS 2.3 mg/dL (2.5-4.9); TOT PROT 6.8 g/dl (6.4-8.2)
[2021-04-24 08:06] LABS: BILIRUBIN,TOTAL 0.4 mg/dL (0.2-1)
[2021-04-24 08:12] LABS: ALBUMIN 3.8 g/dl (3.4-5.0)
[2021-04-24 09:46] LABS: ANISOCYTOSIS 0; HELMET CELLS 0; HOWELL-JOLLY BODIES 0; MACROCYTOSIS 0; OVALOCYTE 0; PLATELET ESTIMATE NORMAL; ROULEAU 0; SICKELED CELLS 0; TARGET CELLS 0; TEAR DROP CELLS 0; TOXIC GRANULATION 0
[2021-04-24] MEDS ORDERED: FUROSEMIDE 40 MG/4 ML INJECTABLE VIAL IVPUSH SCH (10:00)
[2021-04-24] MEDS ORDERED: PT OWN MED DRAWER 7, Y5N ONE ×2 (10:52→21:51)
[2021-04-24] MEDS: DOCUSATE SODIUM 100 MG CAPSULE (FP) PO SCH ×2 (10:55→21:53)
[2021-04-24] MEDS: ATORVASTATIN CA 80 MG TABLET (FP) PO SCH (10:55)
[2021-04-24] MEDS: ALLOPURINOL 300 MG TABLET (FP) PO SCH (10:56)
[2021-04-24] MEDS: ASPIRIN COATED 81 MG TABLET.EC PO SCH (10:56)
[2021-04-24] MEDS: DIVALPROEX NA *ER* EXTEND REL 250 MG TABLET.SA PO SCH ×2 (10:57→21:53)
[2021-04-24] MEDS: LOSARTAN POTASSIUM 50 MG TABLET PO SCH (11:12)
[2021-04-24] MEDS: ARIPiprazole 15 MG TABLET PO SCH (13:36)
[2021-04-24 18:39] LABS: URINE APPEARANCE CLEAR; URINE BILIRUBIN NEGATIVE (NEGATIVE); URINE COLOR YELLOW; URINE GLUCOSE (UA) NEGATIVE (NEGATIVE); URINE KETONE NEGATIVE (NEGATIVE); URINE LEUK ESTERASE NEGATIVE (NEGATIVE); URINE NITRITE NEGATIVE (NEGATIVE); URINE PROTEIN NEGATIVE (NEGATIVE); URINE UROBILINOGEN 0.2 mg/dL (0.2-1.0)
[2021-04-24] MEDS ORDERED: ACETAMINOPHEN 325 MG TABLET (FP) PO PRN (22:10)
[2021-04-25] MEDS: HEPARIN NA (PORCINE) 5,000 UNITS/ML 1ML VIAL SQ SCH ×3 (06:57→21:10)
[2021-04-25 07:47] LABS: HEMATOCRIT 37.9 % (35.4-49); HEMOGLOBIN 12.5 GM/dL (11.7-16.9); MCH 31.6 pg (25.7-33.7); MCHC 32.8 g/dl (32.0-35.9); MEAN CELL VOLUME 96.1 fl (80-96); MEAN PLT VOLUME 7.8 fl (7.5-11.1); PLATELET COUNT 228 10^3/uL (134-434); RBC 3.95 M/mm3 (4.00-5.60); RDW 16.1 % (11.9-15.9); WHITE BLOOD COUNT 29.9 K/mm3 (4.0-10.0)
[2021-04-25 08:07] LABS: ALBUMIN 3.2 g/dl (3.4-5.0); CALCIUM 9.1 mg/dL (8.5-10.1)
[2021-04-25 08:08] LABS: CREATININE 1.8 mg/dL (0.55-1.3)
[2021-04-25 08:09] LABS: BILIRUBIN,TOTAL 0.3 mg/dL (0.2-1)
[2021-04-25 08:11] LABS: TOT PROT 6.2 g/dl (6.4-8.2)
[2021-04-25] MEDS ORDERED: PT OWN MED DRAWER 7, Y5N ONE ×2 (09:23→11:24)
[2021-04-25 09:30] LABS: ANISOCYTOSIS 1+; MACROCYTOSIS 0; PLATELET ESTIMATE NORMAL; TEAR DROP CELLS 1+
[2021-04-25] MEDS: ATORVASTATIN CA 80 MG TABLET (FP) PO SCH (09:54)
[2021-04-25] MEDS: ASPIRIN COATED 81 MG TABLET.EC PO SCH (09:54)
[2021-04-25] MEDS: DIVALPROEX NA *ER* EXTEND REL 250 MG TABLET.SA PO SCH ×2 (09:54→21:10)
[2021-04-25] MEDS: ALLOPURINOL 300 MG TABLET (FP) PO SCH (09:54)
[2021-04-25] MEDS: FUROSEMIDE 40 MG TABLET (FP) PO SCH (09:55)
[2021-04-25] MEDS: LOSARTAN POTASSIUM 50 MG TABLET PO SCH (09:55)
[2021-04-25] MEDS: DOCUSATE SODIUM 100 MG CAPSULE (FP) PO SCH ×2 (09:55→21:09)
[2021-04-25] MEDS: TAMSULOSIN HCL 0.4 MG CAP PO SCH (09:55)
[2021-04-25] MEDS ORDERED: TAMSULOSIN HCL 0.4 MG CAP PO SCH (10:00)
[2021-04-25] MEDS: ARIPiprazole 15 MG TABLET PO SCH (11:31)
[2021-04-26] MEDS: HEPARIN NA (PORCINE) 5,000 UNITS/ML 1ML VIAL SQ SCH ×3 (05:43→21:11)
[2021-04-26] MEDS: TAMSULOSIN HCL 0.4 MG CAP PO SCH (09:29)
[2021-04-26] MEDS ORDERED: PT OWN MED DRAWER 7, Y5N ONE (09:44)
[2021-04-26] MEDS: LOSARTAN POTASSIUM 50 MG TABLET PO SCH (09:50)
[2021-04-26] MEDS: ATORVASTATIN CA 80 MG TABLET (FP) PO SCH (09:50)
[2021-04-26] MEDS: ASPIRIN COATED 81 MG TABLET.EC PO SCH (09:50)
[2021-04-26] MEDS: FUROSEMIDE 40 MG TABLET (FP) PO SCH (09:50)
[2021-04-26] MEDS: DOCUSATE SODIUM 100 MG CAPSULE (FP) PO SCH ×2 (09:50→21:13)
[2021-04-26] MEDS: DIVALPROEX NA *ER* EXTEND REL 250 MG TABLET.SA PO SCH ×2 (09:51→21:12)
[2021-04-26 10:26] LABS: HEMOGLOBIN 12.9 GM/dL (11.7-16.9); MCH 30.7 pg (25.7-33.7); MCHC 31.4 g/dl (32.0-35.9); MEAN CELL VOLUME 97.6 fl (80-96); MEAN PLT VOLUME 8.1 fl (7.5-11.1); PLATELET COUNT 265 10^3/uL (134-434); RDW 16.4 % (11.9-15.9); WHITE BLOOD COUNT 29.4 K/mm3 (4.0-10.0)
[2021-04-26] MEDS ORDERED: ALBUTEROL SO4 2.5/IPRATROPIUM 0.5 INH SOL 3 ML VIAL.NEB. NEB PRN (10:32)
[2021-04-26 10:42] LABS: BLOOD UREA NITROGEN 41.9 mg/dL (7-18); CALCIUM 8.9 mg/dL (8.5-10.1)
[2021-04-26 10:45] LABS: CREATININE 1.7 mg/dL (0.55-1.3)
[2021-04-26] MEDS: ALLOPURINOL 300 MG TABLET (FP) PO SCH ×2 (12:05→12:19)
[2021-04-26] MEDS: ARIPiprazole 15 MG TABLET PO SCH ×2 (12:05→12:17)
[2021-04-27] MEDS: HEPARIN NA (PORCINE) 5,000 UNITS/ML 1ML VIAL SQ SCH ×3 (05:58→21:00)
[2021-04-27] MEDS: TAMSULOSIN HCL 0.4 MG CAP PO SCH (08:19)
[2021-04-27] MEDS ORDERED: PT OWN MED DRAWER 7, Y5N ONE ×3 (08:55→22:10)
[2021-04-27] MEDS: ALLOPURINOL 300 MG TABLET (FP) PO SCH (09:06)
[2021-04-27] MEDS: DIVALPROEX NA *ER* EXTEND REL 250 MG TABLET.SA PO SCH ×2 (09:07→20:59)
[2021-04-27] MEDS: ASPIRIN COATED 81 MG TABLET.EC PO SCH (09:08)
[2021-04-27] MEDS: FUROSEMIDE 40 MG TABLET (FP) PO SCH (09:08)
[2021-04-27] MEDS: ATORVASTATIN CA 80 MG TABLET (FP) PO SCH (09:09)
[2021-04-27] MEDS: LOSARTAN POTASSIUM 50 MG TABLET PO SCH (09:09)
[2021-04-27] MEDS: DOCUSATE SODIUM 100 MG CAPSULE (FP) PO SCH ×2 (09:09→20:59)
[2021-04-27] MEDS: ARIPiprazole 15 MG TABLET PO SCH (09:09)
[2021-04-27 09:45] LABS: CALCIUM 9.1 mg/dL (8.5-10.1)
[2021-04-27 09:46] LABS: BLOOD UREA NITROGEN 40.7 mg/dL (7-18)
[2021-04-27 09:50] LABS: CREATININE 1.6 mg/dL (0.55-1.3)
[2021-04-27] MEDS ORDERED: ARIPiprazole 15 MG TABLET PO SCH (10:00)
[2021-04-27] MEDS ORDERED: ALLOPURINOL 300 MG TABLET (FP) PO SCH (10:00)
[2021-04-27] MEDS: ACETAMINOPHEN 325 MG TABLET (FP) PO PRN (13:38)
[2021-04-27] MEDS ORDERED: MAG HYDROX/AL HYDROX/SIMETH -MYLANTA- ORAL SUSPENSION PO SCH (22:00)
[2021-04-28] MEDS: HEPARIN NA (PORCINE) 5,000 UNITS/ML 1ML VIAL SQ SCH ×3 (05:01→22:14)
[2021-04-28] MEDS: MAG HYDROX/AL HYDROX/SIMETH 30 ML UNIT-DOSE CUP PO SCH ×3 (05:01→22:14)
[2021-04-28] MEDS ORDERED: PT OWN MED DRAWER 7, Y5N ONE ×2 (06:14→09:06)
[2021-04-28] MEDS: DIVALPROEX NA *ER* EXTEND REL 250 MG TABLET.SA PO SCH ×2 (09:11→22:14)
[2021-04-28] MEDS: TAMSULOSIN HCL 0.4 MG CAP PO SCH (09:11)
[2021-04-28] MEDS: ACETAMINOPHEN 325 MG TABLET (FP) PO PRN ×2 (09:11→22:25)
[2021-04-28] MEDS: ASPIRIN COATED 81 MG TABLET.EC PO SCH (09:11)
[2021-04-28] MEDS: ALLOPURINOL 300 MG TABLET (FP) PO SCH (09:11)
[2021-04-28] MEDS: FUROSEMIDE 40 MG TABLET (FP) PO SCH (09:11)
[2021-04-28] MEDS: ATORVASTATIN CA 80 MG TABLET (FP) PO SCH (09:11)
[2021-04-28] MEDS: LOSARTAN POTASSIUM 50 MG TABLET PO SCH (09:12)
[2021-04-28] MEDS: DOCUSATE SODIUM 100 MG CAPSULE (FP) PO SCH ×2 (09:12→22:14)
[2021-04-28] MEDS: ARIPiprazole 15 MG TABLET PO SCH (09:12)
[2021-04-28 10:08] LABS: CALCIUM 9.1 mg/dL (8.5-10.1)
[2021-04-28 10:09] LABS: BLOOD UREA NITROGEN 37.9 mg/dL (7-18)
[2021-04-28 10:12] LABS: CREATININE 1.5 mg/dL (0.55-1.3)
[2021-04-29] MEDS: MAG HYDROX/AL HYDROX/SIMETH 30 ML UNIT-DOSE CUP PO SCH (06:43)
[2021-04-29] MEDS: HEPARIN NA (PORCINE) 5,000 UNITS/ML 1ML VIAL SQ SCH (06:43)
[2021-04-29] MEDS: ACETAMINOPHEN 325 MG TABLET (FP) PO PRN (08:57)
[2021-04-29] MEDS: TAMSULOSIN HCL 0.4 MG CAP PO SCH (08:57)
[2021-04-29 09:41] VITALS: BP 102/61; PULSE 89; TEMP 98.1
[2021-04-29] MEDS: FUROSEMIDE 40 MG TABLET (FP) PO SCH (09:41)
[2021-04-29] MEDS: LOSARTAN POTASSIUM 50 MG TABLET PO SCH (09:41)
[2021-04-29] MEDS ORDERED: PT OWN MED DRAWER 7, Y5N ONE (09:44)
[2021-04-29] MEDS: ATORVASTATIN CA 80 MG TABLET (FP) PO SCH (09:55)
[2021-04-29] MEDS: ASPIRIN COATED 81 MG TABLET.EC PO SCH (09:56)
[2021-04-29] MEDS: ARIPiprazole 15 MG TABLET PO SCH (09:56)
[2021-04-29] MEDS: ALLOPURINOL 300 MG TABLET (FP) PO SCH (09:56)
[2021-04-29] MEDS: DIVALPROEX NA *ER* EXTEND REL 250 MG TABLET.SA PO SCH (09:56)
[2021-04-29] MEDS: DOCUSATE SODIUM 100 MG CAPSULE (FP) PO SCH (09:56)
== END 2021-04-29 15:08 | disposition home or self-care (01) | DRG 300 ==
LOC: JER 07:47 → JERBED 10:11 → INTOOBSV 10:11 → OBSVTOIN 15:44 → J4S 20:40 → J4W 04-25 00:35 → J6S 04-25 23:18
PROVIDERS: ADMIT Internal Medicine
DX: I87.2 Venous insufficiency (chronic) (peripheral) (principal); I50.32 Chronic diastolic (congestive) heart failure; I13.0 Hypertensive heart and chronic kidney disease with heart failure and stage 1 through stage 4 chronic kidney disease, or unspecified chronic kidney disease; N17.9 Acute kidney failure, unspecified; C91.10 Chronic lymphocytic leukemia of B-cell type not having achieved remission; J44.1 Chronic obstructive pulmonary disease with (acute) exacerbation; I25.10 Atherosclerotic heart disease of native coronary artery without angina pectoris; F25.9 Schizoaffective disorder, unspecified; N18.9 Chronic kidney disease, unspecified; F31.9 Bipolar disorder, unspecified; R07.89 Other chest pain
CPT/HCPCS: 36415; 36600; 71045-TC-FY; 71275-TC; 80048; 80053; 81003; 82550; 82553; 82803; 83735; 83880; 84100; 84484; 85025; 85027; 87804; 87807; 93005; 93010; 93306-TC; 93970-TC; 94761; 97116-GP; 97161-GP; 99285-25; C9803; G0378; J1644; U0003; U0005

== ENCOUNTER 2021-07-24 06:30 | Inpatient (IN) | payer OTHER ==
[2021-07-24 08:22] LABS: HEMATOCRIT 37.5 % (35.4-49); HEMOGLOBIN 12.1 GM/dL (11.7-16.9); MCH 30.3 pg (25.7-33.7); MCHC 32.4 g/dl (32.0-35.9); MEAN CELL VOLUME 93.7 fl (80-96); MEAN PLT VOLUME 8.1 fl (7.5-11.1); PLATELET COUNT 225 10^3/uL (134-434); RDW 16.2 % (11.9-15.9); WHITE BLOOD COUNT 25.9 K/mm3 (4.0-10.0)
[2021-07-24 08:32] LABS: INR 0.92 (0.83-1.09); PROTHROMBIN TIME (PATIENT) 10.6 SEC (9.7-13.0)
[2021-07-24 08:35] LABS: ACTIVATED PTT 26.4 SECONDS (25.2-36.5)
[2021-07-24 08:42] LABS: ALBUMIN 3.2 g/dl (3.4-5.0); BLOOD UREA NITROGEN 34.8 mg/dL (7-18); CALCIUM 8.7 mg/dL (8.5-10.1); MAGNESIUM 2.3 mg/dL (1.8-2.4)
[2021-07-24 08:45] LABS: CREATININE 1.7 mg/dL (0.55-1.3)
[2021-07-24 08:47] LABS: BILIRUBIN,TOTAL 0.2 mg/dL (0.2-1); TOT PROT 6.6 g/dl (6.4-8.2)
[2021-07-24 08:50] LABS: N-TERMINAL BNP 80.2 pg/ml (5-125)
[2021-07-24 08:59] LABS: ANISOCYTOSIS 0; HELMET CELLS 0; HOWELL-JOLLY BODIES 0; MACROCYTOSIS 0; OVALOCYTE 0; ROULEAU 0; SICKELED CELLS 0; TARGET CELLS 0; TEAR DROP CELLS 0; TOXIC GRANULATION 0
[2021-07-24 09:58] LABS: URINE APPEARANCE CLEAR; URINE BILIRUBIN NEGATIVE (NEGATIVE); URINE COLOR YELLOW; URINE GLUCOSE (UA) NEGATIVE (NEGATIVE); URINE KETONE TRACE (NEGATIVE); URINE LEUK ESTERASE NEGATIVE (NEGATIVE); URINE NITRITE NEGATIVE (NEGATIVE); URINE PROTEIN TRACE (NEGATIVE); URINE UROBILINOGEN 0.2 mg/dL (0.2-1.0)
[2021-07-24] MEDS ORDERED: ALBUTEROL SO4 2.5/IPRATROPIUM 0.5 INH SOL 3 ML VIAL.NEB. NEB ONE ×2 (11:51→12:04)
[2021-07-24] MEDS ORDERED: MAG HYDROX/AL HYDROX/SIMETH 30 ML UNIT-DOSE CUP PO PRN ×2 (14:27)
[2021-07-24] MEDS: DIVALPROEX NA *ER* EXTEND REL 250 MG TABLET.SA PO SCH (22:28)
[2021-07-24] MEDS: BENZTROPINE MESYLATE 0.5 MG TABLET (FP) PO SCH (22:37)
[2021-07-25] MEDS: CLOTRIMAZOLE 1% CREAM TP SCH ×2 (01:54→12:36)
[2021-07-25] MEDS: ACETAMINOPHEN 325 MG TABLET (FP) PO PRN ×2 (04:00→18:48)
[2021-07-25 07:01] LABS: HEMATOCRIT 35.6 % (35.4-49); HEMOGLOBIN 11.3 GM/dL (11.7-16.9); MCH 30.1 pg (25.7-33.7); MCHC 31.8 g/dl (32.0-35.9); MEAN CELL VOLUME 94.6 fl (80-96); MEAN PLT VOLUME 8.3 fl (7.5-11.1); PLATELET COUNT 216 10^3/uL (134-434); RBC 3.76 M/mm3 (4.00-5.60); RDW 16.2 % (11.9-15.9); WHITE BLOOD COUNT 23.9 K/mm3 (4.0-10.0)
[2021-07-25 07:24] LABS: MAGNESIUM 2.3 mg/dL (1.8-2.4)
[2021-07-25 07:25] LABS: ALBUMIN 3.2 g/dl (3.4-5.0)
[2021-07-25 07:28] LABS: BLOOD UREA NITROGEN 32.5 mg/dL (7-18); CREATININE 1.4 mg/dL (0.55-1.3)
[2021-07-25 07:31] LABS: PHOSPHOROUS 2.4 mg/dL (2.5-4.9)
[2021-07-25 07:32] LABS: BILIRUBIN,TOTAL 0.3 mg/dL (0.2-1)
[2021-07-25 08:46] LABS: ANISOCYTOSIS 0; HELMET CELLS 0; HOWELL-JOLLY BODIES 0; MACROCYTOSIS 0; OVALOCYTE 0; ROULEAU 0; SICKELED CELLS 0; TARGET CELLS 0; TEAR DROP CELLS 0; TOXIC GRANULATION 0
[2021-07-25] MEDS ORDERED: LACTULOSE 20 GM/30 ML UDC (FOR ORAL USE ONLY) PO ONE (09:14)
[2021-07-25] MEDS ORDERED: FUROSEMIDE 40 MG/4 ML INJECTABLE VIAL IVPUSH SCH (10:00)
[2021-07-25] MEDS ORDERED: TAMSULOSIN HCL 0.4 MG CAP PO SCH (10:00)
[2021-07-25] MEDS ORDERED: ENOXAPARIN NA (PORCINE) 40 MG/0.4 ML DISP.SYRIN SQ SCH (10:00)
[2021-07-25] MEDS: LOSARTAN POTASSIUM 50 MG TABLET PO SCH (12:34)
[2021-07-25] MEDS: TAMSULOSIN HCL 0.4 MG CAP PO SCH (12:34)
[2021-07-25] MEDS: BENZTROPINE MESYLATE 0.5 MG TABLET (FP) PO SCH ×2 (12:35→21:49)
[2021-07-25] MEDS: ATORVASTATIN CA 80 MG TABLET (FP) PO SCH (12:35)
[2021-07-25] MEDS: ARIPiprazole 15 MG TABLET PO SCH (12:35)
[2021-07-25] MEDS: DOCUSATE SODIUM 100 MG CAPSULE (FP) PO SCH (12:35)
[2021-07-25] MEDS: SENNOSIDES 8.6MG TABLET (FP) PO SCH (12:36)
[2021-07-25] MEDS: ALLOPURINOL 300 MG TABLET (FP) PO SCH (12:36)
[2021-07-25] MEDS: DIVALPROEX NA *ER* EXTEND REL 250 MG TABLET.SA PO SCH (12:36)
[2021-07-25] MEDS ORDERED: NAPH,MB-DB/K PH,MBDB POWDER PACKET PO ONE (13:12)
[2021-07-25] MEDS: HEPARIN NA (PORCINE) 5,000 UNITS/ML 1ML VIAL SQ SCH ×2 (14:43→21:50)
[2021-07-25] MEDS ORDERED: LORazepam 1 MG TABLET PO PRN (15:40)
[2021-07-25] MEDS ORDERED: PNEUMOC 13-VAL CONJ-DIP CRM/PF 0.5 ML DISP.SYRIN IM ONE (21:14)
[2021-07-25] MEDS: DIVALPROEX NA *ER* EXTEND REL 500 MG TABLET.SA (FP) PO SCH (21:50)
[2021-07-25] MEDS ORDERED: DIVALPROEX SODIUM 250 MG TABLET E.C. PO SCH (22:00)
[2021-07-26] MEDS: CLOTRIMAZOLE 1% CREAM TP SCH ×3 (06:20→22:16)
[2021-07-26] MEDS: HEPARIN NA (PORCINE) 5,000 UNITS/ML 1ML VIAL SQ SCH ×3 (06:31→22:16)
[2021-07-26] MEDS: TAMSULOSIN HCL 0.4 MG CAP PO SCH (06:32)
[2021-07-26 06:53] LABS: HEMATOCRIT 36.3 % (35.4-49); HEMOGLOBIN 12.1 GM/dL (11.7-16.9); MCH 31.2 pg (25.7-33.7); MCHC 33.4 g/dl (32.0-35.9); MEAN CELL VOLUME 93.6 fl (80-96); MEAN PLT VOLUME 7.7 fl (7.5-11.1); PLATELET COUNT 217 10^3/uL (134-434); RBC 3.88 M/mm3 (4.00-5.60); RDW 16.3 % (11.9-15.9)
[2021-07-26 07:21] LABS: CALCIUM 8.4 mg/dL (8.5-10.1)
[2021-07-26 07:22] LABS: BLOOD UREA NITROGEN 31.7 mg/dL (7-18)
[2021-07-26 07:25] LABS: CREATININE 1.6 mg/dL (0.55-1.3); PHOSPHOROUS 3.2 mg/dL (2.5-4.9)
[2021-07-26] MEDS: FUROSEMIDE 40 MG/4 ML INJECTABLE VIAL IVPUSH SCH (09:10)
[2021-07-26] MEDS: ASPIRIN COATED 81 MG TABLET.EC PO SCH (09:48)
[2021-07-26] MEDS: PANTOPRAZOLE 40 MG TABLET PO SCH (09:48)
[2021-07-26] MEDS: ESCITALOPRAM OXALATE 10 MG TABLET PO SCH (09:48)
[2021-07-26] MEDS: ATORVASTATIN CA 80 MG TABLET (FP) PO SCH (09:48)
[2021-07-26] MEDS: LOSARTAN POTASSIUM 50 MG TABLET PO SCH (09:49)
[2021-07-26] MEDS: ARIPiprazole 15 MG TABLET PO SCH (09:49)
[2021-07-26] MEDS: BENZTROPINE MESYLATE 0.5 MG TABLET (FP) PO SCH ×2 (09:50→22:14)
[2021-07-26] MEDS: DIVALPROEX NA *ER* EXTEND REL 500 MG TABLET.SA (FP) PO SCH (09:50)
[2021-07-26] MEDS: ALLOPURINOL 300 MG TABLET (FP) PO SCH (09:51)
[2021-07-26] MEDS: SENNOSIDES 8.6MG TABLET (FP) PO SCH (09:52)
[2021-07-26] MEDS: DOCUSATE SODIUM 100 MG CAPSULE (FP) PO SCH (09:52)
[2021-07-26] MEDS: POLYETHYLENE GLYCOL (HEALTHYLAX) 3350 17 GM PACKET PO SCH ×2 (09:52→22:14)
[2021-07-26] MEDS: ACETAMINOPHEN 325 MG TABLET (FP) PO PRN (16:00)
[2021-07-26] MEDS ORDERED: dilTIAZem HCL 50 MG/10 ML - 10 ML VIAL IVPUSH ONE (17:06)
[2021-07-26] MEDS ORDERED: dilTIAZem HCL 30 MG TABLET PO SCH (17:06)
[2021-07-26] MEDS ORDERED: DIVALPROEX NA *ER* EXTEND REL 500 MG TABLET.SA (FP) PO SCH (17:27)
[2021-07-26] MEDS ORDERED: dilTIAZem HCL 25 MG/5 ML - 5 ML VIAL IVPUSH ONE (17:30)
[2021-07-26] MEDS: LORazepam 1 MG TABLET PO SCH (22:13)
[2021-07-26] MEDS: DIVALPROEX *ER* 500 MG, DIVALPROEX *ER* 250 MG PO SCH (22:14)
[2021-07-26] MEDS: dilTIAZem HCL 30 MG TABLET PO SCH (23:46)
[2021-07-27] MEDS: TAMSULOSIN HCL 0.4 MG CAP PO SCH (06:00)
[2021-07-27] MEDS: HEPARIN NA (PORCINE) 5,000 UNITS/ML 1ML VIAL SQ SCH ×3 (06:00→22:43)
[2021-07-27] MEDS: dilTIAZem HCL 30 MG TABLET PO SCH ×4 (06:00→23:21)
[2021-07-27] MEDS: DOCUSATE SODIUM 100 MG CAPSULE (FP) PO SCH (10:12)
[2021-07-27] MEDS: ATORVASTATIN CA 80 MG TABLET (FP) PO SCH (10:12)
[2021-07-27] MEDS: BENZTROPINE MESYLATE 0.5 MG TABLET (FP) PO SCH ×2 (10:12→22:44)
[2021-07-27] MEDS: ESCITALOPRAM OXALATE 10 MG TABLET PO SCH (10:12)
[2021-07-27] MEDS: PANTOPRAZOLE 40 MG TABLET PO SCH (10:12)
[2021-07-27] MEDS: ARIPiprazole 15 MG TABLET PO SCH (10:12)
[2021-07-27] MEDS: ASPIRIN COATED 81 MG TABLET.EC PO SCH (10:13)
[2021-07-27] MEDS: LOSARTAN POTASSIUM 25 MG TABLET PO SCH (10:13)
[2021-07-27] MEDS: LORazepam 1 MG TABLET PO SCH ×2 (10:13→22:43)
[2021-07-27] MEDS: ACETAMINOPHEN 325 MG TABLET (FP) PO PRN ×2 (10:14→22:48)
[2021-07-27] MEDS: POLYETHYLENE GLYCOL (HEALTHYLAX) 3350 17 GM PACKET PO SCH ×2 (10:17→22:42)
[2021-07-27] MEDS: ALLOPURINOL 300 MG TABLET (FP) PO SCH (10:19)
[2021-07-27] MEDS: SENNOSIDES 8.6MG TABLET (FP) PO SCH (10:19)
[2021-07-27] MEDS: SELENIUM SULFIDE 2.25% 180 ML SHAMPOO TP SCH ×2 (10:19→10:33)
[2021-07-27] MEDS: DIVALPROEX *ER* 500 MG, DIVALPROEX *ER* 250 MG PO SCH ×2 (10:20→22:44)
[2021-07-27] MEDS: CLOTRIMAZOLE 1% CREAM TP SCH ×2 (10:20→22:45)
[2021-07-27] MEDS: FUROSEMIDE 40 MG/4 ML INJECTABLE VIAL IVPUSH SCH (15:11)
[2021-07-27] MEDS ORDERED: FUROSEMIDE 40 MG TABLET (FP) PO ONE (23:08)
[2021-07-28] MEDS: dilTIAZem HCL 30 MG TABLET PO SCH ×3 (06:42→17:27)
[2021-07-28] MEDS: TAMSULOSIN HCL 0.4 MG CAP PO SCH (06:42)
[2021-07-28] MEDS: HEPARIN NA (PORCINE) 5,000 UNITS/ML 1ML VIAL SQ SCH ×2 (06:42→14:54)
[2021-07-28] MEDS: ASPIRIN COATED 81 MG TABLET.EC PO SCH (09:22)
[2021-07-28] MEDS: PANTOPRAZOLE 40 MG TABLET PO SCH (09:22)
[2021-07-28] MEDS: ESCITALOPRAM OXALATE 10 MG TABLET PO SCH (09:22)
[2021-07-28] MEDS: DOCUSATE SODIUM 100 MG CAPSULE (FP) PO SCH (09:22)
[2021-07-28] MEDS: LORazepam 1 MG TABLET PO SCH ×2 (09:22→22:15)
[2021-07-28] MEDS: ATORVASTATIN CA 80 MG TABLET (FP) PO SCH (09:22)
[2021-07-28] MEDS: SENNOSIDES 8.6MG TABLET (FP) PO SCH (09:22)
[2021-07-28] MEDS: CLOTRIMAZOLE 1% CREAM TP SCH ×2 (09:23→22:20)
[2021-07-28] MEDS: BENZTROPINE MESYLATE 0.5 MG TABLET (FP) PO SCH ×2 (09:24→22:16)
[2021-07-28] MEDS: LOSARTAN POTASSIUM 25 MG TABLET PO SCH (09:24)
[2021-07-28] MEDS: ARIPiprazole 15 MG TABLET PO SCH (09:24)
[2021-07-28] MEDS: ALLOPURINOL 300 MG TABLET (FP) PO SCH (09:24)
[2021-07-28] MEDS: DIVALPROEX *ER* 500 MG, DIVALPROEX *ER* 250 MG PO SCH ×2 (09:25→22:16)
[2021-07-28] MEDS: POLYETHYLENE GLYCOL (HEALTHYLAX) 3350 17 GM PACKET PO SCH ×2 (09:34→22:20)
[2021-07-28] MEDS: FUROSEMIDE 40 MG/4 ML INJECTABLE VIAL IVPUSH SCH (14:48)
[2021-07-28] MEDS: SELENIUM SULFIDE 2.25% 180 ML SHAMPOO TP SCH (14:49)
[2021-07-28] MEDS: APIXABAN 5 MG TABLET PO SCH (22:15)
[2021-07-28] MEDS: ACETAMINOPHEN 325 MG TABLET (FP) PO PRN (22:20)
[2021-07-29] MEDS: TAMSULOSIN HCL 0.4 MG CAP PO SCH (06:00)
[2021-07-29] MEDS: ACETAMINOPHEN 325 MG TABLET (FP) PO PRN ×2 (06:00→21:34)
[2021-07-29 07:16] LABS: HEMATOCRIT 36.7 % (35.4-49); HEMOGLOBIN 11.7 GM/dL (11.7-16.9); MCH 30.3 pg (25.7-33.7); MCHC 31.9 g/dl (32.0-35.9); MEAN PLT VOLUME 8.2 fl (7.5-11.1); PLATELET COUNT 245 10^3/uL (134-434); RBC 3.86 M/mm3 (4.00-5.60); RDW 16.4 % (11.9-15.9)
[2021-07-29 07:28] LABS: CALCIUM 8.3 mg/dL (8.5-10.1)
[2021-07-29 07:29] LABS: BLOOD UREA NITROGEN 48.2 mg/dL (7-18); MAGNESIUM 2.3 mg/dL (1.8-2.4)
[2021-07-29 07:32] LABS: CREATININE 1.8 mg/dL (0.55-1.3); PHOSPHOROUS 4.5 mg/dL (2.5-4.9)
[2021-07-29 07:36] LABS: WHITE BLOOD COUNT 34.3 K/mm3 (4.0-10.0)
[2021-07-29 09:24] LABS: ANISOCYTOSIS 0; HELMET CELLS 0; HOWELL-JOLLY BODIES 0; MACROCYTOSIS 0; OVALOCYTE 0; ROULEAU 0; SICKELED CELLS 0; TARGET CELLS 0; TEAR DROP CELLS 0; TOXIC GRANULATION 0
[2021-07-29] MEDS: ARIPiprazole 15 MG TABLET PO SCH (09:53)
[2021-07-29] MEDS: BENZTROPINE MESYLATE 0.5 MG TABLET (FP) PO SCH ×2 (09:53→21:35)
[2021-07-29] MEDS: DIVALPROEX *ER* 500 MG, DIVALPROEX *ER* 250 MG PO SCH ×2 (09:54→21:35)
[2021-07-29] MEDS: LOSARTAN POTASSIUM 25 MG TABLET PO SCH (09:55)
[2021-07-29] MEDS: DOCUSATE SODIUM 100 MG CAPSULE (FP) PO SCH (09:55)
[2021-07-29] MEDS: PANTOPRAZOLE 40 MG TABLET PO SCH (09:55)
[2021-07-29] MEDS: ASPIRIN COATED 81 MG TABLET.EC PO SCH (09:55)
[2021-07-29] MEDS: APIXABAN 5 MG TABLET PO SCH ×2 (09:55→21:35)
[2021-07-29] MEDS: CLOTRIMAZOLE 1% CREAM TP SCH ×2 (09:56→21:35)
[2021-07-29] MEDS: ATORVASTATIN CA 80 MG TABLET (FP) PO SCH (09:56)
[2021-07-29] MEDS: FUROSEMIDE 40 MG TABLET (FP) PO SCH (09:56)
[2021-07-29] MEDS: ESCITALOPRAM OXALATE 10 MG TABLET PO SCH (09:56)
[2021-07-29] MEDS: LORazepam 1 MG TABLET PO SCH ×2 (09:56→21:35)
[2021-07-29] MEDS: POLYETHYLENE GLYCOL (HEALTHYLAX) 3350 17 GM PACKET PO SCH ×3 (09:57→21:36)
[2021-07-29] MEDS: ALLOPURINOL 300 MG TABLET (FP) PO SCH (09:57)
[2021-07-29] MEDS: SELENIUM SULFIDE 2.25% 180 ML SHAMPOO TP SCH (09:57)
[2021-07-29] MEDS: SENNOSIDES 8.6MG TABLET (FP) PO SCH (09:57)
[2021-07-29] MEDS: INSULIN SLIDING SCALE (NOVOLOG) 1 VIAL SQ SCH ×2 (13:35→17:08)
[2021-07-30] MEDS: TAMSULOSIN HCL 0.4 MG CAP PO SCH (06:36)
[2021-07-30] MEDS: INSULIN SLIDING SCALE (NOVOLOG) 1 VIAL SQ SCH ×3 (06:36→17:46)
[2021-07-30 09:02] LABS: HEMATOCRIT 37.5 % (35.4-49); HEMOGLOBIN 11.9 GM/dL (11.7-16.9); MCH 29.9 pg (25.7-33.7); MCHC 31.7 g/dl (32.0-35.9); MEAN CELL VOLUME 94.4 fl (80-96); MEAN PLT VOLUME 8.3 fl (7.5-11.1); PLATELET COUNT 265 10^3/uL (134-434); RBC 3.97 M/mm3 (4.00-5.60); RDW 16.2 % (11.9-15.9)
[2021-07-30 09:22] LABS: WHITE BLOOD COUNT 38.3 K/mm3 (4.0-10.0)
[2021-07-30 09:35] LABS: BLOOD UREA NITROGEN 53.8 mg/dL (7-18); MAGNESIUM 2.6 mg/dL (1.8-2.4)
[2021-07-30 09:37] LABS: PHOSPHOROUS 3.5 mg/dL (2.5-4.9)
[2021-07-30 09:38] LABS: CREATININE 1.9 mg/dL (0.55-1.3)
[2021-07-30] MEDS: POLYETHYLENE GLYCOL (HEALTHYLAX) 3350 17 GM PACKET PO SCH ×2 (10:45→21:21)
[2021-07-30] MEDS: ASPIRIN COATED 81 MG TABLET.EC PO SCH (10:47)
[2021-07-30] MEDS: PANTOPRAZOLE 40 MG TABLET PO SCH (10:47)
[2021-07-30] MEDS: DOCUSATE SODIUM 100 MG CAPSULE (FP) PO SCH (10:48)
[2021-07-30] MEDS: APIXABAN 5 MG TABLET PO SCH ×2 (10:48→21:20)
[2021-07-30] MEDS: ATORVASTATIN CA 80 MG TABLET (FP) PO SCH (10:50)
[2021-07-30] MEDS: LORazepam 1 MG TABLET PO SCH ×2 (10:50→21:20)
[2021-07-30] MEDS: ALLOPURINOL 300 MG TABLET (FP) PO SCH (10:50)
[2021-07-30] MEDS: ESCITALOPRAM OXALATE 10 MG TABLET PO SCH (10:50)
[2021-07-30] MEDS: ARIPiprazole 15 MG TABLET PO SCH (10:56)
[2021-07-30] MEDS: BENZTROPINE MESYLATE 0.5 MG TABLET (FP) PO SCH ×2 (10:56→21:20)
[2021-07-30] MEDS: DIVALPROEX *ER* 500 MG, DIVALPROEX *ER* 250 MG PO SCH ×2 (10:57→21:21)
[2021-07-30] MEDS: SENNOSIDES 8.6MG TABLET (FP) PO SCH (10:58)
[2021-07-30] MEDS: SELENIUM SULFIDE 2.25% 180 ML SHAMPOO TP SCH (10:58)
[2021-07-30] MEDS: CLOTRIMAZOLE 1% CREAM TP SCH ×2 (10:59→21:34)
[2021-07-30 11:17] LABS: ANISOCYTOSIS 0; MACROCYTOSIS 1+
[2021-07-30] MEDS: ACETAMINOPHEN 325 MG TABLET (FP) PO PRN (18:27)
[2021-07-31] MEDS: INSULIN SLIDING SCALE (NOVOLOG) 1 VIAL SQ SCH ×3 (06:09→17:00)
[2021-07-31] MEDS: TAMSULOSIN HCL 0.4 MG CAP PO SCH (06:10)
[2021-07-31 07:24] LABS: CALCIUM 8.5 mg/dL (8.5-10.1)
[2021-07-31 07:25] LABS: ALBUMIN 2.8 g/dl (3.4-5.0); BLOOD UREA NITROGEN 47.2 mg/dL (7-18); MAGNESIUM 2.4 mg/dL (1.8-2.4)
[2021-07-31 07:28] LABS: CREATININE 1.8 mg/dL (0.55-1.3); PHOSPHOROUS 3.3 mg/dL (2.5-4.9)
[2021-07-31 07:29] LABS: BILIRUBIN,TOTAL 0.2 mg/dL (0.2-1)
[2021-07-31 07:44] LABS: HEMATOCRIT 34.7 % (35.4-49); HEMOGLOBIN 10.9 GM/dL (11.7-16.9); MCH 29.8 pg (25.7-33.7); MCHC 31.4 g/dl (32.0-35.9); MEAN CELL VOLUME 94.9 fl (80-96); MEAN PLT VOLUME 8.5 fl (7.5-11.1); PLATELET COUNT 253 10^3/uL (134-434); RBC 3.65 M/mm3 (4.00-5.60); RDW 16.4 % (11.9-15.9)
[2021-07-31 08:12] LABS: WHITE BLOOD COUNT 34.8 K/mm3 (4.0-10.0)
[2021-07-31] MEDS: CLOTRIMAZOLE 1% CREAM TP SCH ×2 (10:13→22:32)
[2021-07-31 10:14] LABS: ANISOCYTOSIS 1+; MACROCYTOSIS 1+
[2021-07-31] MEDS: ESCITALOPRAM OXALATE 10 MG TABLET PO SCH (10:21)
[2021-07-31] MEDS: APIXABAN 5 MG TABLET PO SCH ×2 (10:21→22:31)
[2021-07-31] MEDS: ALLOPURINOL 300 MG TABLET (FP) PO SCH (10:22)
[2021-07-31] MEDS: ATORVASTATIN CA 80 MG TABLET (FP) PO SCH (10:22)
[2021-07-31] MEDS: DOCUSATE SODIUM 100 MG CAPSULE (FP) PO SCH (10:22)
[2021-07-31] MEDS: LORazepam 1 MG TABLET PO SCH ×2 (10:22→22:31)
[2021-07-31] MEDS: SENNOSIDES 8.6MG TABLET (FP) PO SCH (10:22)
[2021-07-31] MEDS: PANTOPRAZOLE 40 MG TABLET PO SCH (10:22)
[2021-07-31] MEDS: ARIPiprazole 15 MG TABLET PO SCH (10:23)
[2021-07-31] MEDS: BENZTROPINE MESYLATE 0.5 MG TABLET (FP) PO SCH ×2 (10:23→22:50)
[2021-07-31] MEDS: ASPIRIN COATED 81 MG TABLET.EC PO SCH (10:23)
[2021-07-31] MEDS: DIVALPROEX *ER* 500 MG, DIVALPROEX *ER* 250 MG PO SCH ×2 (10:25→22:51)
[2021-07-31] MEDS: POLYETHYLENE GLYCOL (HEALTHYLAX) 3350 17 GM PACKET PO SCH ×2 (10:28→22:00)
[2021-07-31] MEDS: SELENIUM SULFIDE 2.25% 180 ML SHAMPOO TP SCH (10:33)
[2021-07-31 12:10] VITALS: BMI 31.6
[2021-07-31 15:55] LABS: URIC ACID 7.4 mg/dL (2.6-7.2)
[2021-07-31] MEDS: ACETAMINOPHEN 325 MG TABLET (FP) PO PRN (18:13)
[2021-08-01] MEDS: TAMSULOSIN HCL 0.4 MG CAP PO SCH (06:07)
[2021-08-01] MEDS: INSULIN SLIDING SCALE (NOVOLOG) 1 VIAL SQ SCH ×2 (06:07→13:39)
[2021-08-01 07:57] LABS: HEMATOCRIT 35.3 % (35.4-49); HEMOGLOBIN 11.4 GM/dL (11.7-16.9); MCH 30.3 pg (25.7-33.7); MCHC 32.2 g/dl (32.0-35.9); MEAN CELL VOLUME 94.1 fl (80-96); MEAN PLT VOLUME 8.1 fl (7.5-11.1); PLATELET COUNT 266 10^3/uL (134-434); RBC 3.75 M/mm3 (4.00-5.60); RDW 16.8 % (11.9-15.9)
[2021-08-01 08:09] LABS: CALCIUM 9.3 mg/dL (8.5-10.1)
[2021-08-01 08:10] LABS: BLOOD UREA NITROGEN 38.9 mg/dL (7-18); MAGNESIUM 2.6 mg/dL (1.8-2.4)
[2021-08-01 08:12] LABS: CREATININE 1.5 mg/dL (0.55-1.3); PHOSPHOROUS 3.7 mg/dL (2.5-4.9)
[2021-08-01 09:15] LABS: WHITE BLOOD COUNT 32.7 K/mm3 (4.0-10.0)
[2021-08-01] MEDS: LORazepam 1 MG TABLET PO SCH (09:41)
[2021-08-01] MEDS: ARIPiprazole 15 MG TABLET PO SCH (09:41)
[2021-08-01] MEDS: ESCITALOPRAM OXALATE 10 MG TABLET PO SCH (09:45)
[2021-08-01] MEDS: PANTOPRAZOLE 40 MG TABLET PO SCH (09:45)
[2021-08-01] MEDS: ASPIRIN COATED 81 MG TABLET.EC PO SCH (09:45)
[2021-08-01] MEDS: DIVALPROEX *ER* 500 MG, DIVALPROEX *ER* 250 MG PO SCH (09:45)
[2021-08-01] MEDS: APIXABAN 5 MG TABLET PO SCH (09:45)
[2021-08-01] MEDS: LOSARTAN POTASSIUM 25 MG TABLET PO SCH (09:45)
[2021-08-01] MEDS: BENZTROPINE MESYLATE 0.5 MG TABLET (FP) PO SCH (09:46)
[2021-08-01] MEDS: ATORVASTATIN CA 80 MG TABLET (FP) PO SCH (10:00)
[2021-08-01 10:42] LABS: ANISOCYTOSIS 0; MACROCYTOSIS 0
[2021-08-01] MEDS: POLYETHYLENE GLYCOL (HEALTHYLAX) 3350 17 GM PACKET PO SCH (13:21)
[2021-08-01] MEDS: DOCUSATE SODIUM 100 MG CAPSULE (FP) PO SCH (13:21)
[2021-08-01] MEDS: SENNOSIDES 8.6MG TABLET (FP) PO SCH (13:21)
[2021-08-01] MEDS: ALLOPURINOL 300 MG TABLET (FP) PO SCH (13:21)
[2021-08-01] MEDS: SELENIUM SULFIDE 2.25% 180 ML SHAMPOO TP SCH (13:22)
[2021-08-01] MEDS: CLOTRIMAZOLE 1% CREAM TP SCH (13:23)
[2021-08-01] MEDS: FUROSEMIDE 40 MG TABLET (FP) PO SCH (13:23)
[2021-08-01 14:18] VITALS: PULSE 92
[2021-08-01 16:33] VITALS: BP 101/60; TEMP 98
[2021-08-01] MEDS: ACETAMINOPHEN 325 MG TABLET (FP) PO PRN (16:57)
[2021-08-02 07:08] LABS: IGA IMMUNOGLOBULIN 94 mg/dL (61-437); IGG QN IMMUNOGLOBULIN 847 mg/dL (603-1613); IGM QN SERUM 44 mg/dL (15-143)
[2021-08-02 18:08] LABS: FREE KAPPA,SERUM 77.2 mg/L (3.3-19.4)
== END 2021-08-01 18:05 | DRG 291 ==
LOC: JER 06:30 → JERBED 09:41 → J4W 21:42
PROVIDERS: ADMIT Internal Medicine; ATTEND Internal Medicine
DX: I13.0 Hypertensive heart and chronic kidney disease with heart failure and stage 1 through stage 4 chronic kidney disease, or unspecified chronic kidney disease (principal); I50.33 Acute on chronic diastolic (congestive) heart failure; N17.9 Acute kidney failure, unspecified; C91.10 Chronic lymphocytic leukemia of B-cell type not having achieved remission; I48.92 Unspecified atrial flutter; I25.10 Atherosclerotic heart disease of native coronary artery without angina pectoris; F25.9 Schizoaffective disorder, unspecified; F42.9 Obsessive-compulsive disorder, unspecified; I45.10 Unspecified right bundle-branch block; E78.00 Pure hypercholesterolemia, unspecified; R26.2 Difficulty in walking, not elsewhere classified; I44.1 Atrioventricular block, second degree; F31.9 Bipolar disorder, unspecified; M54.9 Dorsalgia, unspecified; I48.0 Paroxysmal atrial fibrillation; N18.9 Chronic kidney disease, unspecified; R35.0 Frequency of micturition; R09.02 Hypoxemia; N40.1 Benign prostatic hyperplasia with lower urinary tract symptoms; R33.8 Other retention of urine; R59.9 Enlarged lymph nodes, unspecified; Z91.14 Patient's other noncompliance with medication regimen
CPT/HCPCS: 36415; 70450-TC; 71045-TC-FY; 71275-TC; 72125-TC; 72128-TC; 72131-TC; 72170-TC-FY; 80048; 80053; 80061; 81003; 82140; 82607; 82746; 82784; 82962; 83036; 83615; 83735; 83880; 83883; 84100; 84484; 84550; 85025; 85027; 85610; 85730; 86704; 87040; 87086; 87340; 87804; 87807; 88300-TC; 93005; 93010; 93970-TC; 97116-GP; 97161-GP; 99285-25; C9803-CS; J1644; U0003; U0005

== ENCOUNTER 2022-04-04 20:19 | Inpatient (IN) | payer OTHER ==
[2022-04-04 20:58] VITALS: BMI 28.0
[2022-04-04 21:40] LABS: VENOUS BASE EXCESS 0.7 mmol/L (-2-2); VENOUS O2 SATURATION 78.2 % (70-80); VENOUS PCO2 55.4 mmHg (38-52); VENOUS PH 7.318 (7.310-7.410)
[2022-04-04 22:01] LABS: BASO % 0.3 % (0-2.0); EOS % 0.4 % (0-4.5); HEMATOCRIT 38.3 % (35.4-49); HEMOGLOBIN 11.5 GM/dL (11.7-16.9); LYMPH % 90.6 % (8-40); MCH 26.6 pg (25.7-33.7); MCHC 30.1 g/dl (32.0-35.9); MEAN CELL VOLUME 88.4 fl (80-96); MEAN PLT VOLUME 8.7 fl (7.5-11.1); MONO % 1.9 % (3.8-10.2); NEUT % 6.8 % (42.8-82.8); PLATELET COUNT 179 10^3/uL (134-434); RBC 4.33 M/mm3 (4.00-5.60); RDW 21.2 % (11.9-15.9)
[2022-04-04 22:05] LABS: WHITE BLOOD COUNT 83.3 K/mm3 (4.0-10.0)
[2022-04-04 22:06] LABS: INR 1.13 (0.83-1.09)
[2022-04-04 23:00] LABS: CALCIUM 8.8 mg/dL (8.5-10.1)
[2022-04-04 23:01] LABS: ALBUMIN 3.7 g/dl (3.4-5.0); MAGNESIUM 2.5 mg/dL (1.8-2.4)
[2022-04-04 23:04] LABS: CREATININE 1.8 mg/dL (0.55-1.3)
[2022-04-04 23:07] LABS: BILIRUBIN,TOTAL 0.4 mg/dL (0.2-1); TOT PROT 6.1 g/dl (6.4-8.2)
[2022-04-04 23:09] LABS: N-TERMINAL BNP 145.4 pg/ml (5-125)
[2022-04-04 23:23] LABS: ANISOCYTOSIS 3+; MACROCYTOSIS 0; TARGET CELLS 1+
[2022-04-05] MEDS ORDERED: SODIUM CHLORIDE 500 ML IV STA (00:12)
[2022-04-05] MEDS ORDERED: SODIUM CHLORIDE 1,000 ML IV SCH ×2 (00:15→01:43)
[2022-04-05] MEDS ORDERED: ACETAMINOPHEN 325 MG TABLET (FP) PO PRN (01:11)
[2022-04-05] MEDS ORDERED: LORazepam 0.5 MG TABLET PO PRN (01:29)
[2022-04-05] MEDS ORDERED: APIXABAN 5 MG TABLET ONE ×3 (02:58→22:11)
[2022-04-05] MEDS: BENZTROPINE MESYLATE 0.5 MG TABLET (FP) PO SCH ×2 (03:14→10:24)
[2022-04-05] MEDS: APIXABAN 5 MG TABLET PO SCH ×3 (03:14→22:17)
[2022-04-05] MEDS: DIVALPROEX SODIUM 250 MG TABLET E.C. PO SCH ×3 (03:14→22:17)
[2022-04-05 06:08] LABS: PH,URINE 5.5 (5.0-8.0); URINE APPEARANCE CLEAR; URINE BILIRUBIN NEGATIVE (NEGATIVE); URINE COLOR YELLOW; URINE GLUCOSE (UA) 3+ (NEGATIVE); URINE KETONE NEGATIVE (NEGATIVE); URINE LEUK ESTERASE NEGATIVE (NEGATIVE); URINE NITRITE NEGATIVE (NEGATIVE); URINE PROTEIN NEGATIVE (NEGATIVE); URINE UROBILINOGEN 0.2 mg/dL (0.2-1.0)
[2022-04-05 07:13] LABS: HEMATOCRIT 37.6 % (35.4-49); HEMOGLOBIN 11.3 GM/dL (11.7-16.9); MCH 26.4 pg (25.7-33.7); MEAN CELL VOLUME 87.9 fl (80-96); MEAN PLT VOLUME 8.6 fl (7.5-11.1); PLATELET COUNT 171 10^3/uL (134-434); RBC 4.27 M/mm3 (4.00-5.60); RDW 20.8 % (11.9-15.9)
[2022-04-05] MEDS: INSULIN SLIDING SCALE (NOVOLOG) 1 VIAL SQ SCH ×4 (07:20→22:17)
[2022-04-05 07:34] LABS: BLOOD UREA NITROGEN 44.5 mg/dL (7-18)
[2022-04-05 07:36] LABS: CALCIUM 8.8 mg/dL (8.5-10.1)
[2022-04-05 07:38] LABS: CREATININE 1.6 mg/dL (0.55-1.3); PHOSPHOROUS 3.8 mg/dL (2.5-4.9)
[2022-04-05] MEDS ORDERED: FUROSEMIDE 40 MG TABLET (FP) ONE (09:43)
[2022-04-05] MEDS ORDERED: TAMSULOSIN HCL 0.4 MG CAP ONE (09:44)
[2022-04-05] MEDS ORDERED: LOSARTAN POTASSIUM 25 MG TABLET ONE (09:44)
[2022-04-05] MEDS ORDERED: dilTIAZem HCL 60 MG TABLET ONE (09:44)
[2022-04-05] MEDS ORDERED: SENNOSIDES 8.6MG TABLET (FP) PO ONE (09:44)
[2022-04-05] MEDS ORDERED: ARIPiprazole 5 MG TABLET ONE (09:44)
[2022-04-05] MEDS ORDERED: ESCITALOPRAM OXALATE 10 MG TABLET ONE (09:45)
[2022-04-05] MEDS ORDERED: DIVALPROEX SODIUM 125 MG TABLET E.C. ONE ×2 (09:45→22:11)
[2022-04-05] MEDS ORDERED: SENNOSIDES 8.6MG TABLET (FP) PO SCH (10:00)
[2022-04-05 10:10] LABS: ANISOCYTOSIS 2+; MACROCYTOSIS 0
[2022-04-05] MEDS: ESCITALOPRAM OXALATE 10 MG TABLET PO SCH (10:24)
[2022-04-05] MEDS: ARIPiprazole 15 MG TABLET PO SCH (10:24)
[2022-04-05] MEDS: LOSARTAN POTASSIUM 25 MG TABLET PO SCH (10:24)
[2022-04-05] MEDS: FUROSEMIDE 40 MG TABLET (FP) PO SCH (10:24)
[2022-04-05] MEDS: TAMSULOSIN HCL 0.4 MG CAP PO SCH (10:24)
[2022-04-05] MEDS: SENNOSIDES 8.6MG TABLET (FP) PO SCH (10:25)
[2022-04-05] MEDS: VITAMINS A AND D TOPICAL OINTMENT 60 GM TUBE TP SCH ×2 (10:25→22:17)
[2022-04-05] MEDS: ALLOPURINOL 300 MG TABLET (FP) PO SCH (10:25)
[2022-04-05] MEDS: SELENIUM SULFIDE 2.25% 180 ML SHAMPOO TP SCH (16:13)
[2022-04-05] MEDS ORDERED: ATORVASTATIN CA 80 MG TABLET (FP) PO SCH (22:00)
[2022-04-05] MEDS ORDERED: ATORVASTATIN CA 80 MG TABLET (FP) ONE (22:11)
[2022-04-06] MEDS: BENZTROPINE MESYLATE 0.5 MG TABLET (FP) PO SCH ×2 (05:34→09:30)
[2022-04-06] MEDS: INSULIN SLIDING SCALE (NOVOLOG) 1 VIAL SQ SCH ×3 (08:25→17:06)
[2022-04-06] MEDS ORDERED: APIXABAN 5 MG TABLET ONE (09:18)
[2022-04-06] MEDS ORDERED: LOSARTAN POTASSIUM 25 MG TABLET ONE (09:18)
[2022-04-06] MEDS ORDERED: SENNOSIDES 8.6MG TABLET (FP) PO ONE (09:18)
[2022-04-06] MEDS ORDERED: FUROSEMIDE 40 MG TABLET (FP) ONE (09:18)
[2022-04-06] MEDS ORDERED: ASPIRIN COATED 81 MG TABLET.EC ONE (09:18)
[2022-04-06] MEDS ORDERED: ESCITALOPRAM OXALATE 10 MG TABLET ONE (09:19)
[2022-04-06] MEDS ORDERED: TAMSULOSIN HCL 0.4 MG CAP ONE (09:19)
[2022-04-06] MEDS ORDERED: DIVALPROEX SODIUM 125 MG TABLET E.C. ONE (09:19)
[2022-04-06] MEDS: ARIPiprazole 15 MG TABLET PO SCH (09:30)
[2022-04-06] MEDS: TAMSULOSIN HCL 0.4 MG CAP PO SCH (09:30)
[2022-04-06] MEDS: LOSARTAN POTASSIUM 25 MG TABLET PO SCH (09:31)
[2022-04-06] MEDS: FUROSEMIDE 40 MG TABLET (FP) PO SCH (09:31)
[2022-04-06] MEDS: ESCITALOPRAM OXALATE 10 MG TABLET PO SCH (09:31)
[2022-04-06] MEDS: DIVALPROEX SODIUM 250 MG TABLET E.C. PO SCH (09:31)
[2022-04-06] MEDS: APIXABAN 5 MG TABLET PO SCH (09:31)
[2022-04-06] MEDS: ALLOPURINOL 300 MG TABLET (FP) PO SCH (09:32)
[2022-04-06] MEDS: SELENIUM SULFIDE 2.25% 180 ML SHAMPOO TP SCH (09:32)
[2022-04-06] MEDS: SENNOSIDES 8.6MG TABLET (FP) PO SCH (09:32)
[2022-04-06] MEDS ORDERED: ASPIRIN COATED 81 MG TABLET.EC PO SCH (10:00)
[2022-04-06] MEDS: VITAMINS A AND D TOPICAL OINTMENT 60 GM TUBE TP SCH (10:02)
[2022-04-07 00:51] VITALS: BP 96/52; PULSE 62; RESP 17; TEMP 98.1
== END 2022-04-07 01:30 | DRG 313 ==
LOC: JER 20:19 → JERBED 22:42
PROVIDERS: ADMIT Internal Medicine; ATTEND Internal Medicine
DX: R07.89 Other chest pain (principal); C95.10 Chronic leukemia of unspecified cell type not having achieved remission; I50.32 Chronic diastolic (congestive) heart failure; I13.0 Hypertensive heart and chronic kidney disease with heart failure and stage 1 through stage 4 chronic kidney disease, or unspecified chronic kidney disease; I48.92 Unspecified atrial flutter; I25.10 Atherosclerotic heart disease of native coronary artery without angina pectoris; F42.9 Obsessive-compulsive disorder, unspecified; M10.9 Gout, unspecified; F25.9 Schizoaffective disorder, unspecified; E78.5 Hyperlipidemia, unspecified; I48.91 Unspecified atrial fibrillation; I45.10 Unspecified right bundle-branch block; E11.22 Type 2 diabetes mellitus with diabetic chronic kidney disease; N18.9 Chronic kidney disease, unspecified; F41.9 Anxiety disorder, unspecified; K59.00 Constipation, unspecified
CPT/HCPCS: 0241U-QW; 36415; 71045-TC-FY; 80048; 80053; 81003; 82803; 82962; 83735; 83880; 84100; 84439; 84443; 84484; 85025; 85610; 85730; 87040; 87086; 93005; 93010; 99285-25

== ENCOUNTER 2022-04-16 23:24 | Observation (INO) | payer OTHER ==
[2022-04-17] MEDS ORDERED: ASPIRIN 81 MG CHEWABLE TABLETS PO ONE (00:12)
[2022-04-17] MEDS ORDERED: ACETAMINOPHEN 325 MG TABLET (FP) PO ONE (00:12)
[2022-04-17 01:32] LABS: HEMATOCRIT 36.8 % (35.4-49); HEMOGLOBIN 10.8 GM/dL (11.7-16.9); MCH 26.3 pg (25.7-33.7); MCHC 29.4 g/dl (32.0-35.9); MEAN CELL VOLUME 89.6 fl (80-96); MEAN PLT VOLUME 8.1 fl (7.5-11.1); PLATELET COUNT 167 10^3/uL (134-434); RBC 4.11 M/mm3 (4.00-5.60); RDW 20.8 % (11.9-15.9)
[2022-04-17 01:45] LABS: CALCIUM 8.2 mg/dL (8.5-10.1)
[2022-04-17 01:46] LABS: ALBUMIN 3.1 g/dl (3.4-5.0); BLOOD UREA NITROGEN 53.9 mg/dL (7-18)
[2022-04-17 01:49] LABS: CREATININE 1.6 mg/dL (0.55-1.3)
[2022-04-17] MEDS ORDERED: ASPIRIN 81 MG CHEWABLE TABLETS ONE (01:50)
[2022-04-17] MEDS ORDERED: ACETAMINOPHEN 325 MG TABLET (FP) ONE (01:50)
[2022-04-17 01:51] LABS: BILIRUBIN,TOTAL 0.2 mg/dL (0.2-1); TOT PROT 5.4 g/dl (6.4-8.2); WHITE BLOOD COUNT 106.3 K/mm3 (4.0-10.0)
[2022-04-17 01:53] LABS: INR 1.04 (0.83-1.09)
[2022-04-17 01:54] LABS: N-TERMINAL BNP 370.8 pg/ml (5-125)
[2022-04-17 07:55] LABS: ANISOCYTOSIS 1+; MACROCYTOSIS 0; OVALOCYTE 2+
[2022-04-17] MEDS ORDERED: ASPIRIN COATED 81 MG TABLET.EC ONE (10:21)
[2022-04-17] MEDS ORDERED: FUROSEMIDE 40 MG TABLET (FP) ONE (10:21)
[2022-04-17] MEDS ORDERED: SENNOSIDES 8.6MG TABLET (FP) PO ONE (10:22)
[2022-04-17] MEDS ORDERED: LOSARTAN POTASSIUM 25 MG TABLET ONE (10:22)
[2022-04-17] MEDS ORDERED: dilTIAZem HCL 60 MG TABLET ONE (10:22)
[2022-04-17] MEDS ORDERED: APIXABAN 5 MG TABLET ONE (10:22)
[2022-04-17] MEDS ORDERED: TAMSULOSIN HCL 0.4 MG CAP ONE (10:22)
[2022-04-17] MEDS ORDERED: ESCITALOPRAM OXALATE 10 MG TABLET ONE (10:23)
[2022-04-17] MEDS ORDERED: ARIPiprazole 5 MG TABLET ONE (10:23)
[2022-04-17] MEDS ORDERED: DIVALPROEX SODIUM 125 MG TABLET E.C. ONE (10:23)
[2022-04-17] MEDS: TAMSULOSIN HCL 0.4 MG CAP PO SCH (10:25)
[2022-04-17] MEDS: ARIPiprazole 15 MG TABLET PO SCH (10:26)
[2022-04-17] MEDS: LOSARTAN POTASSIUM 25 MG TABLET PO SCH ×2 (10:28→10:38)
[2022-04-17] MEDS: FUROSEMIDE 40 MG TABLET (FP) PO SCH (10:29)
[2022-04-17] MEDS: DIVALPROEX SODIUM 250 MG TABLET E.C. PO SCH ×2 (10:29→21:45)
[2022-04-17] MEDS: ASPIRIN COATED 81 MG TABLET.EC PO SCH (10:29)
[2022-04-17] MEDS: APIXABAN 5 MG TABLET PO SCH ×2 (10:29→21:27)
[2022-04-17] MEDS: ESCITALOPRAM OXALATE 10 MG TABLET PO SCH (10:30)
[2022-04-17] MEDS: SENNOSIDES 8.6MG TABLET (FP) PO SCH (10:30)
[2022-04-17] MEDS: INSULIN SLIDING SCALE (NOVOLOG) 1 VIAL SQ SCH ×2 (11:56→18:26)
[2022-04-17] MEDS: LORazepam 1 MG TABLET PO SCH ×2 (16:00→21:26)
[2022-04-17] MEDS: VITAMINS A AND D TOPICAL OINTMENT 60 GM TUBE TP SCH ×2 (16:14→21:28)
[2022-04-17] MEDS: BENZTROPINE MESYLATE 0.5 MG TABLET (FP) PO SCH ×2 (16:14→21:45)
[2022-04-17] MEDS: ALLOPURINOL 300 MG TABLET (FP) PO SCH (16:14)
[2022-04-17] MEDS ORDERED: LORazepam 1 MG TABLET ONE (16:16)
[2022-04-17] MEDS: ATORVASTATIN CA 80 MG TABLET (FP) PO SCH (21:27)
[2022-04-18 00:43] VITALS: BMI 28.1
[2022-04-18] MEDS: LORazepam 1 MG TABLET PO SCH ×3 (06:03→21:44)
[2022-04-18] MEDS: INSULIN SLIDING SCALE (NOVOLOG) 1 VIAL SQ SCH ×3 (06:04→17:18)
[2022-04-18] MEDS ORDERED: ASPIRIN 81 MG CHEWABLE TABLETS PO SCH (10:00)
[2022-04-18] MEDS: SENNOSIDES 8.6MG TABLET (FP) PO SCH (10:18)
[2022-04-18] MEDS: ASPIRIN COATED 81 MG TABLET.EC PO SCH (10:18)
[2022-04-18] MEDS: ALLOPURINOL 300 MG TABLET (FP) PO SCH (10:18)
[2022-04-18] MEDS: APIXABAN 5 MG TABLET PO SCH ×2 (10:18→21:44)
[2022-04-18] MEDS: TAMSULOSIN HCL 0.4 MG CAP PO SCH (10:18)
[2022-04-18] MEDS: ESCITALOPRAM OXALATE 10 MG TABLET PO SCH (10:19)
[2022-04-18] MEDS: FUROSEMIDE 40 MG TABLET (FP) PO SCH (10:19)
[2022-04-18] MEDS: LOSARTAN POTASSIUM 25 MG TABLET PO SCH (10:19)
[2022-04-18] MEDS: BENZTROPINE MESYLATE 0.5 MG TABLET (FP) PO SCH ×2 (10:19→21:44)
[2022-04-18] MEDS: ARIPiprazole 15 MG TABLET PO SCH (10:19)
[2022-04-18] MEDS: DIVALPROEX SODIUM 250 MG TABLET E.C. PO SCH ×2 (10:20→21:44)
[2022-04-18] MEDS: VITAMINS A AND D TOPICAL OINTMENT 60 GM TUBE TP SCH (10:20)
[2022-04-18] MEDS: ATORVASTATIN CA 80 MG TABLET (FP) PO SCH (21:44)
[2022-04-18] MEDS: ACETAMINOPHEN 325 MG TABLET (FP) PO PRN (21:51)
[2022-04-19] MEDS: VITAMINS A AND D TOPICAL OINTMENT 60 GM TUBE TP SCH ×3 (01:00→21:15)
[2022-04-19] MEDS: INSULIN SLIDING SCALE (NOVOLOG) 1 VIAL SQ SCH ×3 (06:45→17:23)
[2022-04-19] MEDS: LORazepam 1 MG TABLET PO SCH ×3 (06:45→21:15)
[2022-04-19 08:11] LABS: HEMATOCRIT 41.6 % (35.4-49); MCH 25.9 pg (25.7-33.7); MCHC 28.7 g/dl (32.0-35.9); MEAN CELL VOLUME 90.3 fl (80-96); MEAN PLT VOLUME 8.1 fl (7.5-11.1); PLATELET COUNT 197 10^3/uL (134-434); RBC 4.61 M/mm3 (4.00-5.60); RDW 21.4 % (11.9-15.9)
[2022-04-19 08:18] LABS: WHITE BLOOD COUNT 103.1 K/mm3 (4.0-10.0)
[2022-04-19 08:38] LABS: CALCIUM 8.9 mg/dL (8.5-10.1)
[2022-04-19 08:39] LABS: BLOOD UREA NITROGEN 38.2 mg/dL (7-18)
[2022-04-19 08:41] LABS: URIC ACID 7.6 mg/dL (2.6-7.2)
[2022-04-19 08:42] LABS: CREATININE 1.7 mg/dL (0.55-1.3)
[2022-04-19] MEDS: ALLOPURINOL 300 MG TABLET (FP) PO SCH (10:37)
[2022-04-19] MEDS: ASPIRIN COATED 81 MG TABLET.EC PO SCH (10:37)
[2022-04-19] MEDS: BENZTROPINE MESYLATE 0.5 MG TABLET (FP) PO SCH ×2 (10:37→21:14)
[2022-04-19] MEDS: TAMSULOSIN HCL 0.4 MG CAP PO SCH (10:37)
[2022-04-19] MEDS: FUROSEMIDE 40 MG TABLET (FP) PO SCH (10:37)
[2022-04-19] MEDS: SENNOSIDES 8.6MG TABLET (FP) PO SCH (10:37)
[2022-04-19] MEDS: LOSARTAN POTASSIUM 25 MG TABLET PO SCH (10:38)
[2022-04-19] MEDS: APIXABAN 5 MG TABLET PO SCH ×2 (10:38→21:14)
[2022-04-19] MEDS: ESCITALOPRAM OXALATE 10 MG TABLET PO SCH (10:38)
[2022-04-19] MEDS: DIVALPROEX SODIUM 250 MG TABLET E.C. PO SCH ×2 (10:38→21:14)
[2022-04-19] MEDS: ARIPiprazole 15 MG TABLET PO SCH (10:38)
[2022-04-19 11:17] LABS: ANISOCYTOSIS 2+; MACROCYTOSIS 0
[2022-04-19] MEDS: ATORVASTATIN CA 80 MG TABLET (FP) PO SCH (21:14)
[2022-04-19] MEDS: ACETAMINOPHEN 325 MG TABLET (FP) PO PRN (21:20)
[2022-04-20] MEDS: LORazepam 1 MG TABLET PO SCH (06:03)
[2022-04-20] MEDS: INSULIN SLIDING SCALE (NOVOLOG) 1 VIAL SQ SCH ×3 (06:03→16:31)
[2022-04-20] MEDS: SENNOSIDES 8.6MG TABLET (FP) PO SCH ×2 (09:25→09:35)
[2022-04-20] MEDS: TAMSULOSIN HCL 0.4 MG CAP PO SCH (09:25)
[2022-04-20] MEDS: ESCITALOPRAM OXALATE 10 MG TABLET PO SCH (09:25)
[2022-04-20] MEDS: APIXABAN 5 MG TABLET PO SCH ×2 (09:26→22:29)
[2022-04-20] MEDS: ALLOPURINOL 300 MG TABLET (FP) PO SCH (09:26)
[2022-04-20] MEDS: LOSARTAN POTASSIUM 25 MG TABLET PO SCH (09:26)
[2022-04-20] MEDS: FUROSEMIDE 40 MG TABLET (FP) PO SCH (09:26)
[2022-04-20] MEDS: ASPIRIN COATED 81 MG TABLET.EC PO SCH (09:26)
[2022-04-20] MEDS: DIVALPROEX SODIUM 250 MG TABLET E.C. PO SCH ×2 (09:27→22:43)
[2022-04-20] MEDS: ARIPiprazole 15 MG TABLET PO SCH (09:27)
[2022-04-20] MEDS: BENZTROPINE MESYLATE 0.5 MG TABLET (FP) PO SCH ×2 (09:27→22:43)
[2022-04-20] MEDS: VITAMINS A AND D TOPICAL OINTMENT 60 GM TUBE TP SCH ×2 (09:29→22:36)
[2022-04-20] MEDS: ACETAMINOPHEN 325 MG TABLET (FP) PO PRN (09:34)
[2022-04-20] MEDS ORDERED: LORazepam 1 MG TABLET PO PRN (10:14)
[2022-04-20] MEDS ORDERED: ACETAMINOPHEN 325 MG TABLET (FP) PO PRN (14:47)
[2022-04-20] MEDS: ATORVASTATIN CA 80 MG TABLET (FP) PO SCH (22:29)
[2022-04-21] MEDS: INSULIN SLIDING SCALE (NOVOLOG) 1 VIAL SQ SCH ×2 (07:53→12:05)
[2022-04-21] MEDS: TAMSULOSIN HCL 0.4 MG CAP PO SCH (10:33)
[2022-04-21] MEDS: ARIPiprazole 15 MG TABLET PO SCH (10:33)
[2022-04-21] MEDS: BENZTROPINE MESYLATE 0.5 MG TABLET (FP) PO SCH ×2 (10:34→21:57)
[2022-04-21] MEDS: LOSARTAN POTASSIUM 25 MG TABLET PO SCH (10:34)
[2022-04-21] MEDS: ASPIRIN COATED 81 MG TABLET.EC PO SCH (10:35)
[2022-04-21] MEDS: FUROSEMIDE 40 MG TABLET (FP) PO SCH (10:35)
[2022-04-21] MEDS: DIVALPROEX SODIUM 250 MG TABLET E.C. PO SCH ×2 (10:35→21:57)
[2022-04-21] MEDS: ESCITALOPRAM OXALATE 10 MG TABLET PO SCH (10:35)
[2022-04-21] MEDS: APIXABAN 5 MG TABLET PO SCH ×2 (10:35→21:56)
[2022-04-21] MEDS: ALLOPURINOL 300 MG TABLET (FP) PO SCH (10:37)
[2022-04-21] MEDS: SENNOSIDES 8.6MG TABLET (FP) PO SCH (10:46)
[2022-04-21] MEDS: VITAMINS A AND D TOPICAL OINTMENT 60 GM TUBE TP SCH ×2 (11:14→21:57)
[2022-04-21] MEDS: ATORVASTATIN CA 80 MG TABLET (FP) PO SCH (21:56)
[2022-04-22] MEDS ORDERED: MAG HYDROX/AL HYDROX/SIMETH 30 ML UNIT-DOSE CUP PO ONE (02:58)
[2022-04-22] MEDS ORDERED: REGADENOSON 0.4 MG/5 ML PRE-FILLED SYRINGE IVPUSH ONE ×2 (10:54→13:00)
[2022-04-22] MEDS: ALLOPURINOL 300 MG TABLET (FP) PO SCH (12:33)
[2022-04-22] MEDS: ASPIRIN COATED 81 MG TABLET.EC PO SCH (12:33)
[2022-04-22] MEDS: ARIPiprazole 15 MG TABLET PO SCH (12:33)
[2022-04-22] MEDS: SENNOSIDES 8.6MG TABLET (FP) PO SCH (12:34)
[2022-04-22] MEDS: ESCITALOPRAM OXALATE 10 MG TABLET PO SCH (12:35)
[2022-04-22] MEDS: DIVALPROEX SODIUM 250 MG TABLET E.C. PO SCH (12:35)
[2022-04-22] MEDS: TAMSULOSIN HCL 0.4 MG CAP PO SCH (12:35)
[2022-04-22] MEDS: APIXABAN 5 MG TABLET PO SCH (12:35)
[2022-04-22] MEDS: FUROSEMIDE 40 MG TABLET (FP) PO SCH (12:36)
[2022-04-22] MEDS: BENZTROPINE MESYLATE 0.5 MG TABLET (FP) PO SCH (12:36)
[2022-04-22] MEDS: LOSARTAN POTASSIUM 25 MG TABLET PO SCH (12:37)
[2022-04-22] MEDS: VITAMINS A AND D TOPICAL OINTMENT 60 GM TUBE TP SCH (12:43)
[2022-04-22 14:24] VITALS: BP 109/68; PULSE 66; RESP 16; TEMP 96.2
== END 2022-04-22 14:25 | disposition home or self-care (01) ==
LOC: JER 23:24 → JERBED 04-17 02:08 → J4W 04-17 19:43 → J8W 04-20 14:14
PROVIDERS: ADMIT Family Medicine; ATTEND Internal Medicine
PROC: 3E033GC Introduction of Other Therapeutic Substance into Peripheral Vein, Percutaneous Approach (ICD-10-PCS; principal; 2022-04-17)
DX: I48.91 Unspecified atrial fibrillation (principal); I11.0 Hypertensive heart disease with heart failure; F25.9 Schizoaffective disorder, unspecified; C91.10 Chronic lymphocytic leukemia of B-cell type not having achieved remission; R07.9 Chest pain, unspecified; F31.9 Bipolar disorder, unspecified; E11.9 Type 2 diabetes mellitus without complications; F42.9 Obsessive-compulsive disorder, unspecified; M10.9 Gout, unspecified; Z88.8 Allergy status to other drugs, medicaments and biological substances; R21 Rash and other nonspecific skin eruption
CPT/HCPCS: 0241U-QW; 36415; 71045-TC-FY; 78452-TC; 80048; 80053; 82962; 83735; 83880; 84484; 84550; 85025; 85610; 85730; 93005; 93010; 93017; 96374; 97116-GP; 97161-GP; 99285-25; A9502; C9803-CS; G0378; J2785; U0003; U0005

== ENCOUNTER 2022-05-04 23:10 | Emergency (ER) | payer OTHER ==
[2022-05-04 23:54] VITALS: BP 113/71; PULSE 82; RESP 17; TEMP 98.1; BMI 28.0
[2022-05-05] MEDS ORDERED: MAG HYDROX/AL HYDROX/SIMETH -MYLANTA- ORAL SUSPENSION PO ONE (00:43)
[2022-05-05] MEDS ORDERED: MAG HYDROX/AL HYDROX/SIMETH 30 ML UNIT-DOSE CUP ONE (00:46)
== END 2022-05-05 07:06 | disposition left against medical advice (07) ==
LOC: JER 23:10
DX: R07.9 Chest pain, unspecified (principal)
CPT/HCPCS: 0241U-QW; 71045-TC-FY; 93005; 93010; 99285-25

== ENCOUNTER 2022-05-10 19:34 | Emergency (ER) | payer OTHER ==
[2022-05-10 20:16] VITALS: RESP 17; BMI 28.0
[2022-05-10 21:52] LABS: HEMATOCRIT 40.1 % (35.4-49); HEMOGLOBIN 12.2 GM/dL (11.7-16.9); MCH 27.3 pg (25.7-33.7); MCHC 30.5 g/dl (32.0-35.9); MEAN CELL VOLUME 89.7 fl (80-96); MEAN PLT VOLUME 7.6 fl (7.5-11.1); PLATELET COUNT 299 10^3/uL (134-434); RBC 4.48 M/mm3 (4.00-5.60); RDW 20.8 % (11.9-15.9)
[2022-05-10 21:58] LABS: WHITE BLOOD COUNT 103.6 K/mm3 (4.0-10.0)
[2022-05-10 22:12] LABS: ALBUMIN 3.9 g/dl (3.4-5.0); BLOOD UREA NITROGEN 39.9 mg/dL (7-18)
[2022-05-10 22:15] LABS: CREATININE 1.6 mg/dL (0.55-1.3)
[2022-05-10 22:16] LABS: TOT PROT 6.6 g/dl (6.4-8.2)
[2022-05-10 22:17] LABS: BILIRUBIN,TOTAL 0.2 mg/dL (0.2-1)
[2022-05-10 22:20] LABS: N-TERMINAL BNP 74.5 pg/ml (5-125)
[2022-05-11 01:33] VITALS: BP 112/71; PULSE 84; TEMP 97.6
== END 2022-05-11 04:48 | disposition home or self-care (01) ==
LOC: JER 19:34
DX: R06.02 Shortness of breath (principal); R07.9 Chest pain, unspecified
CPT/HCPCS: 0241U-QW; 36415; 71045-TC-FY; 80053; 83880; 84484; 85027; 85379; 93005; 93010; 99285-25

== ENCOUNTER 2023-12-23 16:50 | Inpatient (IN) | payer OTHER ==
[2023-12-23 18:11] LABS: HEMATOCRIT 36.2 % (35.4-49); MCH 32.3 pg (25.7-33.7); MCHC 33.2 g/dl (32.0-35.9); MEAN CELL VOLUME 97.4 fl (80-96); MEAN PLT VOLUME 7.6 fl (7.5-11.1); PLATELET COUNT 178 10^3/uL (134-434); RBC 3.72 M/mm3 (4.00-5.60); RDW 17.9 % (11.9-15.9); WHITE BLOOD COUNT 9.7 K/mm3 (4.0-10.0)
[2023-12-23 18:36] LABS: POTASSIUM 4.1 mmol/L (3.5-5.1)
[2023-12-23 18:39] LABS: ALBUMIN 3.9 g/dl (3.4-5.0); BLOOD UREA NITROGEN 33.8 mg/dL (7-18); CALCIUM 9.7 mg/dL (8.5-10.1)
[2023-12-23 18:43] LABS: CREATININE 1.8 mg/dL (0.55-1.3)
[2023-12-23 18:44] LABS: BILIRUBIN,TOTAL 0.4 mg/dL (0.2-1); TOT PROT 6.3 g/dl (6.4-8.2)
[2023-12-24 00:12] VITALS: BMI 23.6
[2023-12-24 08:08] LABS: HEMATOCRIT 35.4 % (35.4-49); HEMOGLOBIN 11.9 GM/dL (11.7-16.9); MCH 32.6 pg (25.7-33.7); MCHC 33.5 g/dl (32.0-35.9); MEAN CELL VOLUME 97.2 fl (80-96); MEAN PLT VOLUME 7.7 fl (7.5-11.1); PLATELET COUNT 168 10^3/uL (134-434); RBC 3.64 M/mm3 (4.00-5.60); RDW 17.5 % (11.9-15.9); WHITE BLOOD COUNT 9.1 K/mm3 (4.0-10.0)
[2023-12-24 08:34] LABS: BLOOD UREA NITROGEN 29.1 mg/dL (7-18)
[2023-12-24 08:35] LABS: CALCIUM 9.8 mg/dL (8.5-10.1)
[2023-12-24 08:37] LABS: CREATININE 1.6 mg/dL (0.55-1.3)
[2023-12-24 08:51] LABS: ANISOCYTOSIS 0; MACROCYTOSIS 0
[2023-12-24] MEDS: ALLOPURINOL 300 MG TABLET (FP) PO SCH (09:53)
[2023-12-24] MEDS: DIVALPROEX SODIUM 250 MG TABLET E.C. PO SCH (09:53)
[2023-12-24] MEDS: APIXABAN 5 MG TABLET PO SCH (09:53)
[2023-12-24] MEDS: FINASTERIDE 5 MG TABLET (FP) PO SCH (09:53)
[2023-12-24] MEDS: VITAMIN B COMP W-C 1 EA TABLET (NEPHRO-VITE) PO SCH (09:53)
[2023-12-24] MEDS: TAMSULOSIN HCL 0.4 MG CAP PO SCH (09:53)
[2023-12-24] MEDS: GABAPENTIN 300 MG CAPSULE PO SCH (09:53)
[2023-12-24] MEDS: ARIPiprazole 5 MG TABLET PO SCH (09:54)
[2023-12-24] MEDS: ESCITALOPRAM OXALATE 10 MG TABLET PO SCH (09:54)
[2023-12-24] MEDS: AMANTADINE HCL 100 MG TABLET PO SCH (09:54)
[2023-12-24 19:39] LABS: PH,URINE 6.5 (5.0-8.0); URINE APPEARANCE CLEAR; URINE BILIRUBIN NEGATIVE (NEGATIVE); URINE COLOR YELLOW; URINE GLUCOSE (UA) NEGATIVE (NEGATIVE); URINE KETONE NEGATIVE (NEGATIVE); URINE LEUK ESTERASE NEGATIVE (NEGATIVE); URINE NITRITE NEGATIVE (NEGATIVE); URINE PROTEIN NEGATIVE (NEGATIVE); URINE UROBILINOGEN 0.2 mg/dL (0.2-1.0)
[2023-12-24] MEDS: ATORVASTATIN CA 80 MG TABLET (FP) PO SCH (21:09)
[2023-12-24] MEDS: SENNOSIDES 8.6MG TABLET (FP) PO SCH (21:09)
[2023-12-24] MEDS: DIVALPROEX SODIUM 500 MG TABLET E.C. PO SCH (21:09)
[2023-12-26 08:22] LABS: HEMATOCRIT 38.2 % (35.4-49); HEMOGLOBIN 12.8 GM/dL (11.7-16.9); MCH 32.4 pg (25.7-33.7); MCHC 33.5 g/dl (32.0-35.9); MEAN CELL VOLUME 96.8 fl (80-96); PLATELET COUNT 194 10^3/uL (134-434); RBC 3.95 M/mm3 (4.00-5.60); RDW 17.5 % (11.9-15.9); WHITE BLOOD COUNT 10.2 K/mm3 (4.0-10.0)
[2023-12-26 08:34] LABS: CALCIUM 9.6 mg/dL (8.5-10.1); POTASSIUM 4.3 mmol/L (3.5-5.1)
[2023-12-26 08:36] LABS: BLOOD UREA NITROGEN 25.8 mg/dL (7-18)
[2023-12-26 08:39] LABS: CREATININE 1.5 mg/dL (0.55-1.3); URIC ACID 5.1 mg/dL (2.6-7.2)
[2023-12-26] MEDS: AMANTADINE HCL 100 MG TABLET PO SCH (09:57)
[2023-12-26 10:07] LABS: ANISOCYTOSIS 0; HELMET CELLS 0; HOWELL-JOLLY BODIES 0; MACROCYTOSIS 0; OVALOCYTE 0; ROULEAU 0; SICKELED CELLS 0; TARGET CELLS 0; TEAR DROP CELLS 0; TOXIC GRANULATION 0
[2023-12-26] MEDS ORDERED: LORazepam 1 MG TABLET PO ONE (19:00)
[2023-12-26] MEDS: ARIPiprazole 5 MG TABLET PO SCH (21:28)
[2023-12-27] MEDS: ACETAMINOPHEN 325 MG TABLET (FP) PO PRN (10:15)
[2023-12-28] MEDS: POLYETHYLENE GLYCOL (HEALTHYLAX) 3350 17 GM PACKET PO SCH (09:09)
[2023-12-28 09:18] VITALS: RESP 18
[2023-12-29] MEDS: LORazepam 1 MG TABLET PO ONE (08:21)
[2023-12-30 07:00] VITALS: TEMP 97.5
[2023-12-30 08:22] VITALS: BP 122/87; PULSE 80
== END 2023-12-30 10:35 | DRG 552 ==
LOC: JER 16:50 → JERBED 17:30 → J7W 12-24 00:12 → OBSVTOIN 12-28 09:21
PROVIDERS: ADMIT Internal Medicine; ATTEND Internal Medicine
DX: M48.02 Spinal stenosis, cervical region (principal); I48.92 Unspecified atrial flutter; G95.20 Unspecified cord compression; G99.2 Myelopathy in diseases classified elsewhere; M48.07 Spinal stenosis, lumbosacral region; E11.40 Type 2 diabetes mellitus with diabetic neuropathy, unspecified; F03.90 Unspecified dementia, unspecified severity, without behavioral disturbance, psychotic disturbance, mood disturbance, and anxiety; F20.9 Schizophrenia, unspecified; G20.A1 Parkinson's disease without dyskinesia, without mention of fluctuations
CPT/HCPCS: 36415; 70450-TC; 71045-TC-FY; 72125-TC; 72131-TC; 72170-TC-FY; 80048; 80053; 81003; 82607; 84550; 85025; 85027; 87086; 93005; 93010; 97116-GP; 97161-GP; 99285-25; G0378